=== PATIENT | female | born 1980 | race Caucasian/White ===

== ENCOUNTER 2020-08-17 12:40 | Emergency (ER) | payer SELFPAY ==
[2020-08-17 12:45] VITALS: BP 149/94; PULSE 90; RESP 16; TEMP 36.9; O2SAT 98; BMI 46.0
--- NOTE | 2020-08-17 12:57 | ED_ITS ---
HPI - Skin/Abscess/Foreign Bdy General: Chief complaint: Skin/Abscess/Foreign Body Stated complaint: TICK BITE Time Seen by Provider: 08/17/20 12:54 History of Present Illness: HPI narrative: Patient is a 40-year-old female comes to the ED with tick bite on right foot. Patient says that she noticed a tick on her right foot last Monday but august 12. She removed it with some tweezers on Monday as well. Over the last 24 hours patient developed a red r lexis around tick bite. She denies any fever, neurological symptoms, nausea/vomiting. Patient says she is asymptomatic. Associated symptoms: Deny chills, fever(s), nausea or vomiting Review of Systems Const: Denies: fever(s), chills or fatigue Eyes: Denies: change in vision or eye discomfort ENMT: Denies: throat pain, odynophagia, nasal discharge or nasal congestion Card: Denies: chest pain, palpitations, edema, swelling of feet/ankles, dyspnea on exertion or orthopnea Resp: Denies: dyspnea, productive cough or non-productive cough GI: Denies: abdominal pain, nausea, vomiting, diarrhea, constipation or hematochezia : Denies: flank pain, dysuria or hematuria Musc: Denies: neck pain, back pain or extremity swelling Skin/Breast: Reports: rash (Erythemic rash around tick bite); Denies: new lesions Neuro: Denies: headache(s), numbness in extremities or weakness in extremities PFS ED PFSH: Medical History Bipolar II disorder Mixed episodes Generalized anxiety disorder Nicotine dependence, cigarettes, uncomplicated Social History Smoking and tobacco status: current every day smoker cigarettes Packs smoked per day: 1 Physical Exam Const: COMMON NORMALS: no acute distress, patient oriented x3 and alert GENERAL APPEARANCE: cooperative and comfortable NUTRITIONAL APPEARANCE: obese HENMT: COMMON NORMALS: normocephalic HEAD & SCALP: normocephalic MOUTH: Normal oral and palatal mucosa present THROAT: posterior oropharynx normal and uvula midline Neck/C-Spine: COMMON NORMALS: supple GENERAL: Yes normal visual inspection Resp: COMMON NORMALS: normal respiratory effort, No retractions, No use of accessory muscles and clear to auscultation bilaterally AUSCULTATION: clear to auscultation bilaterally Cardio: COMMON NORMALS: regular rate, regular rhythm, S1 normal heart sound present, S2 normal heart sound present, No gallops present (Cardio), No clicks present (Cardio), No murmurs present (Cardio) and Peripheral pulses 2+ throughout RATE: regular rate RHYTHM: regular rhythm HEART SOUNDS: S1 normal heart sound present and S2 normal heart sound present PERIPHERAL PULSES: Peripheral pulses 2+ throughout GI: COMMON NORMALS: Normal to inspection, nondistended, normoactive bowel sounds present, Soft to palpation, non-tender and no masses PALPATION: Yes Soft to palpation : COMMON NORMALS: Yes no CVA tenderness BLADDER/KIDNEY EXAM: Yes no CVA tenderness Back/Pelvis: COMMON NORMALS: no CVA tenderness Extremity: NARRATIVE EXTREMITY EXAM: Patient has erythemic, warm and tender rash encircling the tick bite. Rash does not resemble erythema migrans. Exam findings suggestive of mild cellulitis developing. GENERAL: Yes normal exam except as noted Neuro: COMMON NORMALS: patient oriented x3 and moves all extremities SENSORIUM/ORIENTATION: Yes alert Skin: NARRATIVE SKIN EXAM: Patient has erythemic, warm and tender rash encircling the tick bite. Rash does not resemble erythema migrans. Exam findings suggestive of mild cellulitis developing. GENERAL SKIN EXAM: dry skin Course Vital Signs: Vital signs: Vital Signs Temperature 98.4 F 08/17/20 12:45 Pulse Rate 90 08/17/20 12:45 Respiratory Rate 16 08/17/20 12:45 Blood Pressure 149/94 08/17/20 12:45 Pulse Oximetry 98 08/17/20 12:45 MDM - Skin/Abscess/Foreign Bdy MDM Narrative: Medical decision making narrative: Patient is a 40-year-old female comes to the ED with tick bite on right foot. She removed the tick on Monday and she started developing an red rash around tick bite couple days ago. She denies any symptoms and patient appears nontoxic and is in no acute distress or pain. Patient has erythemic rash around tick bite area. Rash does not resemble the erythema migrans. CBC and CMP were unremarkable. Tick panel lab pending. Patient diagnosed with tick bite of foot. Patient was given a dose of doxycycline and sent home with a prescription for doxycycline. She was told to follow-up with her PCP in 7 to 10 days for reevaluation. Return to ED precautions given. Patient understood and agreed with plan. Lab Data: Attestation: I reviewed the patient's lab results. Labs: Lab Results 08/17/20 08/17/20 Range/Units 13:07 13:07 WBC 5.9 (4.0-10.0) 10^3/ uL RBC 4.97 (4.1-5.3) 10^6/u L Hgb 14.3 (11.5-15.3) g/dL Hct 43.2 (37.0-47.0) % MCV 86.9 (81-99) fL MCH 28.8 (28.0-34.0) pg MCHC 33.1 (30.0-36.0) g/dL RDW 14.3 (12.1-15.1) % Plt Count 223 (130-400) 10^3/c mm MPV 11.1 H (7.4-10.4) fL Neut % (Auto) 37.7 % Lymph % (Auto) 52.1 % [place] % (Auto) 7.3 % Eos % (Auto) 2.0 % Baso % (Auto) 0.7 % Neut # (Auto) 2.23 (1.8-7.7) 10^3/u L Lymph # (Auto) 3.1 (0.8-4.8) 10^3/u L [place] # (Auto) 0.4 (0.2-0.9) 10^3/u L Eos # (Auto) 0.1 (0.0-0.8) 10^3/u L Baso # (Auto) 0.0 (0.0-0.1) 10^3/u L Nucleated RBC % (a uto) 0 % Nucleated RBCs # 0.0 /100WBC Sodium 141 (136-145) mmol/L Potassium 4.3 (3.5-5.1) mmol/L Chloride 107 (98-107) mmol/L Carbon Dioxide 27 (22-29) mmol/L Anion Gap 11.3 (5-19) BUN 9 (6-20) mg/dL Creatinine 0.5 (0.5-0.9) mg/dL GFR Calculation 138.1 H (90-130) mL/min Glucose 86 (65-115) mg/dL Calculated Osmolal ity 290 (285-295) mOsm/k g Calcium 8.8 (8.5-10.5) mg/dL Total Bilirubin 0.5 (0.15-1.2) mg/dL AST 23 (0-32) U/L ALT 22 (0-33) U/L Alkaline Phosphata se 70 (35-105) IU/L Total Protein 7.2 (6.6-8.7) g/dL Albumin 4.2 (3.5-5.2) g/dL Globulin 3.0 (1.3-4.6) g/dL Discharge Plan Discharge Patient Disposition: Home Clinical Impression: Tick bite of foot Qualifiers: Encounter type: initial encounter Laterality: right Qualified Code(s): S90.861A - Insect bite (nonvenomous), right foot, initial encounter Condition: Stable Prescriptions: New doxycycline hyclate 100 mg capsule 100 mg PO BID 14 Days Qty: 28 RF: 0 No Action hydrocodone-acetaminophen 7.5-325 mg tablet 1 tab PO TID PRN (Reason: Pain) RF: 0 Prilosec OTC 20 mg tablet,delayed release (DR/EC) 20 mg PO DAILY@2100 RF: 0 cetirizine [Zyrtec] 10 mg tablet 10 mg PO DAILY RF: 0 alprazolam 0.5 mg tablet 0.5 mg PO BID PRN (Reason: anxiety) Qty: 60 RF: 3 Advil 200 mg Tablet 200 mg PO Q6H PRN (Reason: pain/fever) RF: 0 Celexa 40 mg tablet 40 mg PO DAILY@0900 RF: 0 Abilify 10 mg tablet 10 mg PO BEDTIME@2100 RF: 0 Discharge Orders: Discharge ED (Routine); Ordered 08/17/20 Ordered By: Naldo Holly Referrals: Armani Aguila MD [Primary Care Provider] - Discharge Diet: Regular Discharge Activity: Resume usual activity Patient Instructions: Lyme Disease (ED), Tick Bite (ED), [place] Spotted Fever (ED) Activity Restrictions/Additional Instructions: Follow-up with medical provider as directed in 7 to 10 days for reevaluation. Take medications as prescribed. Take [id number] Tylenol or ibuprofen for fevers or pain. Return to the ER or your medical provider if condition worsens. Please read and understand discharge instructions. Thank you for choosing [facility] for your healthcare needs today. Please realize this is an emergency room and that we are providing you with a medical screening exam and this may not be complete and all inclusive of all the testing and or work up that you may need to determine your ailment or severity of your illness. It is very important that you follow up as instructed or that you return to the Emergency Department should you have concerns or if your condition changes or worsens in any way. 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
[2020-08-17 13:18] LABS: Basophils % 0.7 %; Eosinophils # 0.1 10^3/uL (0.0-0.8); Hematocrit 43.2 % (37.0-47.0); Hemoglobin 14.3 g/dL (11.5-15.3); Lymphocytes # 3.1 10^3/uL (0.8-4.8); Lymphocytes % 52.1 %; Mean Corpuscular HGB Conc 33.1 g/dL (30.0-36.0); Mean Corpuscular Hemoglobin 28.8 pg (28.0-34.0); Mean Corpuscular Volume 86.9 fL (81-99); Mean Platelet Volume 11.1 fL (7.4-10.4); Monocytes # 0.4 10^3/uL (0.2-0.9); Monocytes % 7.3 %; Neutrophils # 2.23 10^3/uL (1.8-7.7); Neutrophils % 37.7 %; Nucleated Red Blood Cells % 0 %; Platelet Count 223 10^3/cmm (130-400); Red Blood Count 4.97 10^6/uL (4.1-5.3); Red Cell Distribution Width 14.3 % (12.1-15.1); White Blood Count 5.9 10^3/uL (4.0-10.0)
[2020-08-17] MEDS: doxycycline 100 mg Tablet PO (13:26)
[2020-08-17 13:39] LABS: Alanine Aminotransferase 22 U/L (0-33); Albumin Level 4.2 g/dL (3.5-5.2); Alkaline Phosphatase 70 IU/L (35-105); Anion Gap 11.3 (5-19); Aspartate Amino Transferase 23 U/L (0-32); Blood Urea Nitrogen 9 mg/dL (6-20); Calcium 8.8 mg/dL (8.5-10.5); Carbon Dioxide 27 mmol/L (22-29); Chloride 107 mmol/L (98-107); Glomerular Filtration Rate 138.1 mL/min (90-130); Glucose 86 mg/dL (65-115); Osmolality Calculated 290 mOsm/kg (285-295); Potassium 4.3 mmol/L (3.5-5.1); Sodium 141 mmol/L (136-145); Total Bilirubin 0.5 mg/dL (0.15-1.2); Total Protein 7.2 g/dL (6.6-8.7)
[2020-08-19 12:12] LABS: Lyme AB Screen <0.90 index
[2020-08-21 17:32] LABS: E. Chaffeensis AB IGG <1:64; E. Chaffeensis AB IGM <1:20; RMSF IGG NOT DETECTED; RMSF IGM NOT DETECTED
== END 2020-08-17 13:49 | disposition home or self-care (01) ==
PROVIDERS: Emergency Provider Physician Assistant; PCP Family Medicine
DX: S90.861A Insect bite (nonvenomous), right foot, initial encounter (principal); W57.XXXA Bitten or stung by nonvenomous insect and other nonvenomous arthropods, initial encounter; F17.210 Nicotine dependence, cigarettes, uncomplicated
CPT/HCPCS: 80053; 85025; 86618; 86666; 86757; 99282

== ENCOUNTER 2020-09-25 14:25 | Emergency (ER) | payer SELFPAY ==
[2020-09-25 14:49] VITALS: BP 166/121; PULSE 74; RESP 16; TEMP 36.6; O2SAT 97; BMI 45.1
[2020-09-25 15:59] LABS: Add Urine Microscopic? NO; Charge for UA Resulting for Rev
[2020-09-25 16:20] LABS: Basophils % 0.6 %; Eosinophils # 0.2 10^3/uL (0.0-0.8); Eosinophils % 2.4 %; Hematocrit 38.9 % (37.0-47.0); Hemoglobin 12.8 g/dL (11.5-15.3); Lymphocytes # 3.3 10^3/uL (0.8-4.8); Lymphocytes % 48.6 %; Mean Corpuscular HGB Conc 32.9 g/dL (30.0-36.0); Mean Corpuscular Hemoglobin 28.8 pg (28.0-34.0); Mean Corpuscular Volume 87.6 fL (81-99); Mean Platelet Volume 10.9 fL (7.4-10.4); Monocytes # 0.5 10^3/uL (0.2-0.9); Monocytes % 7.8 %; Neutrophils # 2.74 10^3/uL (1.8-7.7); Neutrophils % 40.5 %; Nucleated Red Blood Cells % 0 %; Platelet Count 230 10^3/cmm (130-400); Red Blood Count 4.44 10^6/uL (4.1-5.3); Red Cell Distribution Width 14.1 % (12.1-15.1); White Blood Count 6.8 10^3/uL (4.0-10.0)
[2020-09-25 16:42] LABS: HCG, Serum Qual Negative (Negative)
[2020-09-25 16:43] LABS: Bilirubin Urine Neg (Negative); Blood Urine Neg (Negative); Glucose Urine UA Norm (Normal); Ketones Urine Negative (Negative); Leukocyte Esterase Urine Negative (Negative); Nitrate Urine Negative (Negative); Protein Urine Neg (Negative); Urine Appearance Clear (CLEAR); Urine Color Yellow (Yellow); Urobilinogen Urine Norm (Negative); pH Urine 7 (5-7)
[2020-09-25 16:55] LABS: Alanine Aminotransferase 20 U/L (0-33); Albumin Level 3.9 g/dL (3.5-5.2); Alkaline Phosphatase 72 IU/L (35-105); Anion Gap 10.6 (5-19); Aspartate Amino Transferase 17 U/L (0-32); Blood Urea Nitrogen 8 mg/dL (6-20); Calcium 9.4 mg/dL (8.5-10.5); Carbon Dioxide 28 mmol/L (22-29); Chloride 103 mmol/L (98-107); Globulin 2.9 g/dL (1.3-4.6); Glomerular Filtration Rate 138.1 mL/min (90-130); Glucose 94 mg/dL (65-115); Lipase 40 U/L (13-60); Osmolality Calculated 284 mOsm/kg (285-295); Potassium 3.6 mmol/L (3.5-5.1); Sodium 138 mmol/L (136-145); Total Bilirubin 0.4 mg/dL (0.15-1.2); Total Protein 6.8 g/dL (6.6-8.7)
== END 2020-09-25 18:09 | disposition home or self-care (01) ==
LOC: ER 14:35
PROVIDERS: Physician Assistant; PCP Family Medicine
DX: Z53.21 Procedure and treatment not carried out due to patient leaving prior to being seen by health care provider (principal)
CPT/HCPCS: 36415; 80053; 81003; 83690; 84703; 85025

== ENCOUNTER → 2020-11-26 12:47 | Outpatient (BNVA) | payer OTHER, SELFPAY | PROVIDERS: PCP Family Medicine; Visit Provider Nurse Practitioner Family | DX: Z20.822 Contact with and (suspected) exposure to COVID-19 (principal) | CPT/HCPCS: 87635 ==

== ENCOUNTER 2021-09-10 00:37 | Emergency (ER) | payer SELFPAY ==
[2021-09-10 00:57] VITALS: BP 135/84; PULSE 60; RESP 18; TEMP 36.6; O2SAT 98; BMI 41.1
[2021-09-10 02:31] VITALS: BP 143/88; RESP 16
--- NOTE | 2021-09-10 02:41 | W.ED.ABDPA2 ---
HPI - Abdominal Pain General: Chief Complaint: Abdominal Pain Stated Complaint: abd pain Time Seen by Provider: 09/10/21 01:29 Source: patient Mode of arrival: ambulatory Limitations: no limitations History of Present Illness: 41-year-old female states that she has had an abscess to her right lower abdomen over the last few days. States its been causing her pain at the site that is sharp in nature it is worse with touch. States her pain is a 4 out of 10 she denies any radiation of her pain denies any nausea or vomiting. She had some slight drainage from the abscess. Associated Symptoms: Denies chills, diarrhea, dysuria, fever(s), nausea and vomiting Review of Systems Const: Denies: fever(s), chills, body aches or change in appetite Eyes: Denies: blurry vision or eye discomfort ENMT: Denies: throat pain or dental pain Card: Denies: chest pain Resp: Denies: dyspnea GI: Denies: abdominal pain, nausea, vomiting or diarrhea : Denies: dysuria Musc: Denies: neck pain or back pain Skin/Breast: Denies: rash Neuro: Denies: headache(s) Psych: Denies: depression Quinn/Lymph: Denies: easy bruising All/Imm: Denies: urticaria PFSH ED PFSH: Medical History Bipolar II disorder Mixed episodes Generalized anxiety disorder Nicotine dependence, cigarettes, uncomplicated Social History Smoking and tobacco status: current every day smoker cigarettes Packs smoked per day: 1 Physical Exam Const: COMMON NORMALS: no acute distress, patient oriented x3 and healthy appearing HENMT: COMMON NORMALS: normocephalic and atraumatic HEAD & SCALP: normocephalic and atraumatic Eye: COMMON NORMALS: Equal, round and reactive pupils present and EOMs intact bilaterally PUPIL: Yes Equal, round and reactive pupils present Neck/C-Spine: COMMON NORMALS: full ROM and supple Chest: COMMONS NORMALS: normal inspection of the chest and normal palpation of entire chest wall Resp: COMMON NORMALS: normal respiratory effort, No retractions, No use of accessory muscles and clear to auscultation bilaterally AUSCULTATION: clear to auscultation bilaterally Cardio: COMMON NORMALS: regular rate, regular rhythm and No murmurs present (Cardio) RATE: regular rate RHYTHM: regular rhythm GI: COMMON NORMALS: Normal to inspection, nondistended, normoactive bowel sounds present, Soft to palpation, non-tender and no masses PALPATION: Yes Soft to palpation Extremity: COMMON NORMALS: normal to inspection and full ROM Neuro: COMMON NORMALS: patient oriented x3, moves all extremities and no focal motor deficits Psych: COMMON NORMALS: mental status grossly normal, Normal thought process present and cooperative THOUGHT PROCESS: Normal thought process present Skin: NARRATIVE SKIN EXAM: 2 cm abscess to right lower abdomen that is tender to touch Procedures Abscess I/D Site: abdomen Side (if applicable): right Local Anesthetic: lidocaine 1% Amount of anesthesia used (mL): 8 Technique: incised with #11 blade Packing used?: none Course Vital Signs: Vital signs: Vital Signs Temperature 97.9 F 09/10/21 00:57 Pulse Rate 60 09/10/21 00:57 Respiratory Rate 18 09/10/21 00:57 Blood Pressure 135/84 09/10/21 00:57 Pulse Oximetry 98 09/10/21 00:57 MDM - Abdominal Pain Medical Decision Making Patient presents with abscess to right lower abdomen a believe that likely causing her abdominal pain she has no tenderness elsewhere besides the abscess did incise and drain the abscess we will start her on Bactrim. Discharge Plan Discharge Patient Disposition: Home Clinical Impression: Abscess Condition: Stable Prescriptions: New Bactrim DS 800-160 mg tablet 1 tab PO BID 10 Days Qty: 20 0RF naproxen [Naprosyn] 500 mg tablet 500 mg PO BID PRN (Reason: pain) Qty: 20 0RF No Action hydrocodone-acetaminophen 7.5-325 mg tablet 1 tab PO TID PRN (Reason: Pain) 0RF Prilosec OTC 20 mg tablet,delayed release (DR/EC) 20 mg PO DAILY@2100 0RF cetirizine [Zyrtec] 10 mg tablet 10 mg PO DAILY 0RF alprazolam 0.5 mg tablet 0.5 mg PO BID PRN (Reason: anxiety) Qty: 30 3RF Rx Instructions: May take one tablet twice per day as needed for anxiety aripiprazole [Abilify] 10 mg tablet 10 mg PO .QHS Qty: 30 6RF Rx Instructions: Take one tablet at bedtime citalopram [Celexa] 40 mg tablet 40 mg PO QAM Qty: 30 6RF Rx Instructions: Take one tablet every morning Advil 200 mg Tablet 200 mg PO Q6H PRN (Reason: pain/fever) 0RF Discharge Orders: Discharge ED (Routine); Ordered 09/10/21 Ordered By: Jennifer Mann Referrals: Armani Aguila MD [Primary Care Provider] - Discharge Diet: Advance as tolerated Discharge Activity: Resume usual activity Patient Instructions: Abscess (ED), Opioid Safety Coding Level of Care Code ED 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
[2021-09-10] MEDS: HYDROcodone-acetaminophen 5-325 mg Tablet 1 TAB PO (02:44)
[2021-09-10 03:00] VITALS: BP 136/88; PULSE 88; RESP 16; O2SAT 98
[2021-09-10 03:01] VITALS: BP 136/88; PULSE 88; RESP 16; O2SAT 98
== END 2021-09-10 03:02 | disposition home or self-care (01) ==
PROVIDERS: Emergency Provider Emergency Medicine; PCP Family Medicine
DX: L02.211 Cutaneous abscess of abdominal wall (principal); F17.210 Nicotine dependence, cigarettes, uncomplicated
CPT/HCPCS: 10060; 99283

== ENCOUNTER 2021-10-08 23:42 | Emergency (ER) | payer SELFPAY ==
[2021-10-09 00:17] VITALS: BP 153/98; PULSE 80; RESP 18; TEMP 36.4; O2SAT 97; BMI 41.5
[2021-10-09] MEDS: ketorolac 30 mg/mL INJ 15 MG IVP (00:33)
[2021-10-09] MEDS: diphenhydrAMINE 50 mg/mL SDV 1mL IVP (00:33)
[2021-10-09] MEDS: metoclopramide 5 mg/mL SDV 2 mL 10 MG IVP (00:33)
--- NOTE | 2021-10-09 00:37 | ED_ITS ---
HPI - Headache General: Chief Complaint: Headache Stated Complaint: Headach\N\V Time Seen by Provider: 10/09/21 00:02 Source: patient Mode of arrival: ambulatory Limitations: no limitations History of Present Illness: 41-year-old female who states that she has had a headache since last night. She states she has a history of migraines and this is the same as her previous migraines. States her headaches currently 8 out of 10 is worsening gradually is worse with bright lights and loud sounds. She denies any fever denies any neck pain denies any vomiting or diarrhea. Associated symptoms: Deny chest pain, fever(s), nausea, rash or vomiting Review of Systems Const: Denies: fever(s), chills, body aches or change in appetite Eyes: Denies: blurry vision or eye discomfort ENMT: Denies: throat pain or dental pain Card: Denies: chest pain Resp: Denies: dyspnea GI: Denies: abdominal pain, nausea, vomiting or diarrhea : Denies: dysuria Musc: Denies: neck pain or back pain Skin/Breast: Denies: rash Neuro: Reports: headache(s) Psych: Denies: depression Quinn/Lymph: Denies: easy bruising All/Imm: Denies: urticaria PFSH ED PFSH: Medical History Bipolar II disorder Mixed episodes Generalized anxiety disorder Nicotine dependence, cigarettes, uncomplicated Social History Smoking and tobacco status: current every day smoker cigarettes Packs smoked per day: 1 Physical Exam Const: COMMON NORMALS: no acute distress, patient oriented x3 and healthy appearing HENMT: COMMON NORMALS: normocephalic and atraumatic HEAD & SCALP: normocephalic and atraumatic Eye: COMMON NORMALS: Equal, round and reactive pupils present and EOMs intact bilaterally PUPIL: Yes Equal, round and reactive pupils present Neck/C-Spine: COMMON NORMALS: full ROM and supple Chest: COMMONS NORMALS: normal inspection of the chest and normal palpation of entire chest wall Resp: COMMON NORMALS: normal respiratory effort, No retractions, No use of accessory muscles and clear to auscultation bilaterally AUSCULTATION: clear to auscultation bilaterally Cardio: COMMON NORMALS: regular rate, regular rhythm and No murmurs present (Cardio) RATE: regular rate RHYTHM: regular rhythm GI: COMMON NORMALS: Normal to inspection, nondistended, normoactive bowel sounds present, Soft to palpation, non-tender and no masses PALPATION: Yes Soft to palpation Extremity: COMMON NORMALS: normal to inspection and full ROM Neuro: COMMON NORMALS: patient oriented x3, moves all extremities and no focal motor deficits Psych: COMMON NORMALS: mental status grossly normal, Normal thought process present and cooperative THOUGHT PROCESS: Normal thought process present Skin: COMMON NORMALS: no rashes or lesions noted and no wounds GENERAL SKIN EXAM: no rashes or lesions noted Course Vital Signs: Vital signs: Vital Signs Temperature 97.5 F L 10/09/21 00:17 Pulse Rate 80 10/09/21 00:17 Respiratory Rate 18 10/09/21 00:17 Blood Pressure 153/98 10/09/21 00:17 Pulse Oximetry 97 10/09/21 00:17 MDM - Headache Medical Decision Making Patient presents here with a migraine headache like her previous migraine she has no signs of subarachnoid hemorrhage or meningitis she feels much improved here she is stable for discharge is to follow-up PCP and return if worsening. Discharge Plan Discharge Patient Disposition: Home Clinical Impression: Migraine Qualifiers: Migraine type: unspecified Status migrainosus presence: without status migrainosus Intractability: not intractable Qualified Code(s): G43.909 - Migraine, unspecified, not intractable, without status migrainosus Condition: Stable Prescriptions: No Action hydrocodone-acetaminophen 7.5-325 mg tablet 1 tab PO TID PRN (Reason: Pain) 0RF Prilosec OTC 20 mg tablet,delayed release (DR/EC) 20 mg PO DAILY@2100 0RF cetirizine [Zyrtec] 10 mg tablet 10 mg PO DAILY 0RF alprazolam 0.5 mg tablet 0.5 mg PO BID PRN (Reason: anxiety) Qty: 30 3RF Rx Instructions: May take one tablet twice per day as needed for anxiety aripiprazole [Abilify] 10 mg tablet 10 mg PO .QHS Qty: 30 6RF Rx Instructions: Take one tablet at bedtime citalopram [Celexa] 40 mg tablet 40 mg PO QAM Qty: 30 6RF Rx Instructions: Take one tablet every morning Advil 200 mg Tablet 200 mg PO Q6H PRN (Reason: pain/fever) 0RF Naprosyn 500 mg tablet 500 mg PO BID PRN (Reason: pain) Qty: 20 0RF Discharge Orders: Discharge ED (Routine); Ordered 10/09/21 Ordered By: Jennifer Mann Referrals: Armani Aguila MD [Primary Care Provider] - Discharge Diet: Advance as tolerated Discharge Activity: Resume usual activity Patient Instructions: Migraine Headache (ED) Stand Alone Forms: Work/School Release Coding Level of Care 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
== END 2021-10-09 01:17 | disposition home or self-care (01) ==
PROVIDERS: Emergency Provider Emergency Medicine; PCP Family Medicine
DX: G43.909 Migraine, unspecified, not intractable, without status migrainosus (principal); F17.210 Nicotine dependence, cigarettes, uncomplicated
CPT/HCPCS: 96374; 96375; 99284; J1200; J1885; J2765

== ENCOUNTER 2021-11-17 14:13 | Emergency (ER) | payer SELFPAY ==
[2021-11-17 14:17] VITALS: BP 153/97; PULSE 88; RESP 14; TEMP 36.9; O2SAT 99; BMI 40.6
--- NOTE | 2021-11-17 14:35 | ED_ITS ---
HPI - Headache General: Chief Complaint: Headache Stated Complaint: N/V head pain Time Seen by Provider: 11/17/21 14:14 Source: patient Mode of arrival: ambulatory Limitations: no limitations History of Present Illness: Patient is a 41-year-old female presents to ED today with complaint of a migraine headache. Patient states she has a longstanding history of migraine headaches and states her headache today feels identical to previous migraines. She states currently headache is located to her left temporal region although she has had pain to the right temporal region as well. Pain started yesterday. She states at its worst she will rate at a 10/10 but currently is rating it at a 7.5/10. Headache is accompanied with nausea and vomiting which is common for her migraines. She states headache seems to be worse with light and sound. Patient does not take any prophylactic or abortive migraine medications at home. MD elicited complaint: headache and migraine Pertinent past history: migraines Onset (ago): day(s) (yesterday) Onset description: gradually Location: right, left and temporal Severity: moderate Exacerbating factors: light and noise Associated symptoms: Reports nausea and vomiting; Deny chest pain, confusion, fever(s), malaise or rash Review of Systems Const: Denies: fever(s), chills, body aches, fatigue or malaise Eyes: Denies: change in vision, blurry vision, photophobia, floaters or seeing flashes Card: Denies: chest pain Resp: Denies: dyspnea GI: Reports: nausea and vomiting; Denies: abdominal pain or change in bowel habits Musc: Denies: neck pain, back pain, extremity pain or joint pain Skin/Breast: Denies: rash Neuro: Reports: headache(s); Denies: numbness in extremities, weakness in extremities, sensory changes, lack of coordination, difficulty walking, dizziness, confusion, behavioral changes, Slurred speech present, difficulty communicating thoughts or seizure-like activity PFS ED PFSH: Medical History Bipolar II disorder Mixed episodes Generalized anxiety disorder Nicotine dependence, cigarettes, uncomplicated Social History Smoking and tobacco status: current every day smoker cigarettes Packs smoked per day: 1 Physical Exam Const: COMMON NORMALS: no acute distress, patient oriented x3, no limitations and alert GENERAL APPEARANCE: cooperative NUTRITIONAL APPEARANCE: obese ORIENTATION/CONSCIOUSNESS: Yes awake, Yes oriented to person, Yes oriented to place and Yes oriented to time HENMT: COMMON NORMALS: normocephalic and atraumatic HEAD & SCALP: normal to inspection, normocephalic and atraumatic FACE & SINUS: normal facial exam GI: COMMON NORMALS: Normal to inspection, nondistended, normoactive bowel sounds present, Soft to palpation and non-tender PALPATION: Yes Soft to palpation Neuro: BRITNEY COMA SCALE: document GCS findings Britney coma scale eye opening: Spontaneous [place] coma scale verbal response: Orientated Britney coma scale motor response: Obey commands Britney coma scale total score: 15 COMMON NORMALS: patient oriented x3, CN's II-XII intact bilaterally, moves all extremities, no focal motor deficits, no sensory deficits noted and gait normal SENSORIUM/ORIENTATION: Yes alert, Yes oriented to person, Yes oriented to place and Yes oriented to time Course Vital Signs: Vital signs: Vital Signs Temperature 98.5 F 11/17/21 14:17 Pulse Rate 88 11/17/21 14:17 Respiratory Rate 14 11/17/21 14:17 Blood Pressure 137/94 11/17/21 15:30 Pulse Oximetry 99 11/17/21 14:17 Oxygen Delivery Me thod 11/17/21 14:17 MDM - Headache Medical Decision Making [place] improving with medications here. She states she feels comfortable going home at this time. Discharge Plan Discharge Patient Disposition: Home Clinical Impression: Migraine Qualifiers: Migraine type: without aura Status migrainosus presence: without status migrainosus Intractability: not intractable Qualified Code(s): G43.009 - Migraine without aura, not intractable, without status migrainosus Condition: Stable Prescriptions: No Action hydrocodone-acetaminophen 7.5-325 mg tablet 1 tab PO TID PRN (Reason: Pain) Prilosec OTC 20 mg tablet,delayed release (DR/EC) 20 mg PO DAILY@2100 cetirizine [Zyrtec] 10 mg tablet 10 mg PO DAILY alprazolam 0.5 mg tablet 0.5 mg PO BID PRN (Reason: anxiety) Qty: 30 3RF Rx Instructions: May take one tablet twice per day as needed for anxiety aripiprazole [Abilify] 10 mg tablet 10 mg PO .QHS Qty: 30 6RF Rx Instructions: Take one tablet at bedtime citalopram [Celexa] 40 mg tablet 40 mg PO QAM Qty: 30 6RF Rx Instructions: Take one tablet every morning Advil 200 mg Tablet 200 mg PO Q6H PRN (Reason: pain/fever) Naprosyn 500 mg tablet 500 mg PO BID PRN (Reason: pain) Qty: 20 0RF Discharge Orders: Discharge ED (Routine); Ordered 11/17/21 Ordered By: Marium Solitario Referrals: Armani Aguila MD [Primary Care Provider] - Patient Instructions: Headache - Migraine (Adult), Migraine Headache (ED) Coding Level of Care Code 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
[2021-11-17 15:30] VITALS: BP 137/94
[2021-11-17] MEDS: sodium chloride 0.9% 1,000 ML 999 ML IV (15:33)
[2021-11-17] MEDS: ondansetron 2 mg/ML SDV 2 mL 4 MG IVP (15:35)
[2021-11-17] MEDS: diphenhydrAMINE 50 mg/mL SDV 1mL IVP (15:38)
[2021-11-17] MEDS: ketorolac 60 mg/2 mL INJ 30 MG IVP (15:42)
[2021-11-17] MEDS: dexamethasone 10 mg/mL INJ 8 MG IV (15:46)
[2021-11-17 16:55] VITALS: BP 137/68; PULSE 67; RESP 16; O2SAT 98
== END 2021-11-17 16:57 | disposition home or self-care (01) ==
PROVIDERS: Emergency Provider Physician Assistant; PCP Family Medicine
DX: G43.009 Migraine without aura, not intractable, without status migrainosus (principal); F17.210 Nicotine dependence, cigarettes, uncomplicated
CPT/HCPCS: 96374; 96375; 99284; J1100; J1200; J1885; J2405; J7030

== ENCOUNTER 2022-11-06 11:13 | Emergency (ER) | payer SELFPAY ==
[2022-11-06 11:28] VITALS: BP 159/93; PULSE 74; RESP 15; TEMP 36.7; O2SAT 98
--- NOTE | 2022-11-06 12:25 | W.ED.HA ---
HPI - Headache General: Chief Complaint: Headache Stated Complaint: N/headache Time Seen by Provider: 11/06/22 12:08 Source: patient Mode of arrival: ambulatory Limitations: no limitations History of Present Illness: This patient comes to the emergency department by private vehicle. She is here because of a headache. She states its been present since early this morning. She states she is woken with a headache and it is similar and unchanged from previous headaches she has had in the past. She states she suffered from similar headaches over 30 years. She states both her mother and father had migraine headaches. She has had repetitive vomiting this morning and has not been able to eat or drink or keep an Excedrin in her stomach. She denies any recent falls, fever congestion etc. She does consume caffeine daily but has not had any caffeine today because of her nausea and vomiting. She also smokes tobacco. She does not drink alcohol. She seems to think trigger sometimes or getting overheated and she did experience that yesterday. She denies any associated speech difficulty, focal numbness or weakness. She just describes the headache as global and pounding in nature. MD elicited complaint: headache Pertinent past history: migraines Exacerbating factors: exertion and light Context: occurred at rest Associated symptoms: Reports nausea and vomiting; Deny chest pain, confusion, fever(s) or rash Review of Systems Const: Denies: fever(s) or chills Eyes: Reports: photophobia; Denies: change in vision ENMT: Denies: throat pain, odynophagia or nasal congestion Card: Denies: chest pain, palpitations, irregular heart rhythm or edema Resp: Denies: dyspnea, productive cough or non-productive cough GI: Reports: nausea and vomiting; Denies: abdominal pain or diarrhea : Denies: flank pain, difficulty voiding or dysuria Musc: Denies: neck pain, back pain, extremity pain or extremity swelling Skin/Breast: Denies: rash Neuro: Reports: headache(s); Denies: numbness in extremities, weakness in extremities, dizziness or confusion Psych: Denies: anxiety or depression PFS ED PFSH: Medical History Bipolar II disorder Mixed episodes Generalized anxiety disorder Nicotine dependence, cigarettes, uncomplicated Social History Smoking and tobacco status: current every day smoker cigarettes Packs smoked per day: 1 Physical Exam Narrative: EXAM NARRATIVE: She is resting in the examination room in a darkened room with sunglasses. She answers questions appropriately in a goal-directed fashion. Const: COMMON NORMALS: patient oriented x3 GENERAL APPEARANCE: cooperative NUTRITIONAL APPEARANCE: overweight ORIENTATION/CONSCIOUSNESS: Yes awake and Yes oriented to person HENMT: COMMON NORMALS: normocephalic, atraumatic, Normal nasal mucous membranes and turbinates present and moist oral mucous membranes HEAD & SCALP: normal to inspection, normocephalic and atraumatic; no scalp tenderness NOSE: Normal nasal mucous membranes and turbinates present Eye: COMMON NORMALS: Equal, round and reactive pupils present, EOMs intact bilaterally and conjunctivae normal CONJUNCTIVA: Yes conjunctivae normal PUPIL: Yes Equal, round and reactive pupils present Neck/C-Spine: COMMON NORMALS: full ROM, supple, no meningeal signs, no JVD and Thyroid normal THYROID: Thyroid normal Chest: COMMONS NORMALS: normal inspection of the chest Resp: COMMON NORMALS: normal respiratory effort, No retractions, No use of accessory muscles and clear to auscultation bilaterally EFFORT & INSPECTION: Yes able to speak in complete sentences AUSCULTATION: clear to auscultation bilaterally Cardio: COMMON NORMALS: no JVD, regular rate, regular rhythm, No murmurs present (Cardio) and Peripheral pulses 2+ throughout RATE: regular rate RHYTHM: regular rhythm PERIPHERAL PULSES: Peripheral pulses 2+ throughout GI: COMMON NORMALS: Normal to inspection, nondistended, normoactive bowel sounds present : COMMON NORMALS: Yes no CVA tenderness BLADDER/KIDNEY EXAM: Yes no CVA tenderness Back/Pelvis: COMMON NORMALS: no CVA tenderness, thoracic and lumbar spine normal to inspection, no thoracic nor lumbar tenderness and thoraco-lumbar ROM normal Extremity: COMMON NORMALS: normal to inspection, full ROM, capillary refill normal, no joint enlargement, no clubbing, cyanosis or edema, no calf tenderness and no pedal edema Neuro: COMMON NORMALS: patient oriented x3, moves all extremities and no focal motor deficits SENSORIUM/ORIENTATION: Yes oriented to person MENINGEAL SIGNS: Yes no meningeal signs CRANIAL NERVES: Yes CN normal except as noted SPEECH: speech normal Psych: COMMON NORMALS: mental status grossly normal Skin: COMMON NORMALS: no rashes or lesions noted, no wounds and turgor normal GENERAL SKIN EXAM: no rashes or lesions noted and turgor normal Course Reevaluation(s): Reevaluation #1: After second dose of Reglan as well as Toradol patient's is clinically much improved and feels at baseline and desires to be discharged home. Time: 15:03 Vital Signs: Vital signs: Vital Signs Temperature 98.1 F 11/06/22 11:28 Pulse Rate 74 11/06/22 11:28 Respiratory Rate 15 11/06/22 11:28 Blood Pressure 159/91 11/06/22 14:03 Pulse Oximetry 98 11/06/22 11:28 Oxygen Delivery Me thod Room Air 11/06/22 14:03 MDM - Headache Medical Decision Making This patient made her way to the emergency department because of a headache. Headache onset and character is exactly like prior headaches. She has a 30+ year history of recurrent headaches with a strong family history of similar vascular and mixed headaches. Nothing different or unusual about the onset of this headache. She had associated vomiting and nausea. No focal findings on clinical examination to suggest a worrisome secondary headache. She received treatment with usual vascular mixed headache medications to include IV fluids, Reglan, diphenhydramine, ketorolac. She had a very positive response to medications and treatment and was stable improved without any headache at the time of discharge. Discharge Plan Discharge Patient Disposition: Home Clinical Impression: Headache Condition: Stable Prescriptions: No Action hydrocodone-acetaminophen 7.5-325 mg tablet 1 tab PO Q8H PRN (Reason: Pain) Prilosec OTC 20 mg tablet,delayed release (DR/EC) 20 mg PO DAILY cetirizine [Zyrtec] 10 mg tablet 10 mg PO DAILY PRN (Reason: Allergy Symptoms) ibuprofen [Advil] 200 mg Tablet 800 mg PO Q6H PRN (Reason: pain/fever) albuterol sulfate 90 mcg/actuation Hfa Aerosol Inhaler 2 puff INHALATION QID PRN (Reason: Shortness Of Breath) Discharge Orders: Discharge ED (Routine); Ordered 11/06/22 Ordered By: George oLpez Referrals: Armani Aguila MD [Primary Care Provider] - Discharge Diet: Usual diet Discharge Activity: Increase activity as tolerated Patient Instructions: Opioid Safety, Pain Management Activity Restrictions/Additional Instructions: We recommend continue usual activity, medications etc. We also recommend getting with your primary personal care aid to discuss any need for rescue or prophylactic treatment for your recurrent headaches. If you develop any new or worsening symptoms you are welcome to return to the emergency department for reevaluation. 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
[2022-11-06] MEDS: diphenhydrAMINE 50 mg/mL SDV 1mL 25 MG IVP (12:48)
[2022-11-06] MEDS: metoclopramide 5 mg/mL SDV 2 mL 10 MG IVP ×2 (12:48→14:15)
[2022-11-06] MEDS: sodium chloride 0.9% 1,000 ML 999 ML IV (12:48)
[2022-11-06 14:03] VITALS: BP 159/91
[2022-11-06] MEDS: ketorolac 30 mg/mL INJ 15 MG IVP (14:16)
== END 2022-11-06 15:11 | disposition home or self-care (01) ==
PROVIDERS: Emergency Provider Emergency Medicine; PCP Family Medicine
DX: R51.9 Headache, unspecified (principal)
CPT/HCPCS: 96374; 96375; 96376; 99284; J1200; J1885; J2765; J7030

== ENCOUNTER 2023-03-01 09:54 | Emergency (ER) | payer SELFPAY ==
[2023-03-01 10:09] VITALS: BP 142/99; PULSE 71; RESP 16; TEMP 36.5; O2SAT 99; BMI 42.2
[2023-03-01] MEDS: ondansetron 2 mg/ML SDV 2 mL 4 MG IVP (11:31)
[2023-03-01] MEDS: sodium chloride 0.9% 1,000 ML 999 ML IV (11:35)
--- NOTE | 2023-03-01 11:37 | ED_ITS ---
HPI - Headache 2 General: Chief Complaint: Headache Stated Complaint: headache,NVD Time Seen by Provider: 03/01/23 11:15 Source: patient Mode of arrival: ambulatory History of Present Illness: 43-year-old female presents emergency ro om with complaint of migraine that began early this morning. She has had previous migraines in the past this 1 has been little more intense she has tried the usual ibuprofen [id number] she normally treats it with Instat this became more intense she has more photophobia and autophobia that she had quite a bit of nausea and vomiting as well. No recent fever sweats chills no head trauma. She is also taken some Dramamine earlier. She states this is similar to migraine she has had previous just more intense than the typical MD elicited complaint: headache Onset (ago): hour(s) Onset description: suddenly Exacerbating factors: light and noise Relieving factors: nothing Associated symptoms: Reports nausea, photophobia and sound sensitivity; Deny chest pain, confusion, cough, diaphoresis, eye pain, eye redness, fever(s), lightheadedness, loss of vision, malaise, neck stiffness, numbness, paresthesias, pre-syncope, rash, seizures, short of breath, syncope, vomiting or weakness Review of Systems 2 Const: Denies: fever(s), chills, malaise or diaphoresis Card: Denies: chest pain, lightheadedness, syncope or pre-syncope Resp: Denies: dyspnea GI: Reports: nausea; Denies: abdominal pain or vomiting : Denies: dysuria, urinary frequency or urinary urgency Musc: Denies: neck pain or back pain Skin/Breast: Denies: rash Neuro: Denies: confusion PFSH ED 2 PFSH: Medical History Nicotine dependence, cigarettes, uncomplicated Generalized anxiety disorder Bipolar II disorder Mixed episodes Social History Smoking and tobacco/nicotine status: current every day tobacco/nicotine user cigarettes Packs smoked per day: 1 Physical Exam 2 Const: COMMON NORMALS: no acute distress GENERAL APPEARANCE: cooperative and comfortable ORIENTATION/CONSCIOUSNESS: Yes awake, Yes oriented to person, Yes oriented to place and Yes oriented to time HENMT: COMMON NORMALS: normocephalic, atraumatic and hearing grossly normal bilaterally HEAD & SCALP: normocephalic and atraumatic Eye: DIRECT OPHTHALMOSCOPY: Yes photophobia Resp: COMMON NORMALS: normal respiratory effort, No retractions, No use of accessory muscles and clear to auscultation bilaterally AUSCULTATION: clear to auscultation bilaterally Cardio: COMMON NORMALS: regular rate, regular rhythm and No murmurs present (Cardio) RATE: regular rate RHYTHM: regular rhythm GI: COMMON NORMALS: Soft to palpation and No hepatosplenomegaly present A USCULTATION: Yes normoactive bowel sounds PALPATION: Yes Soft to palpation, No Tenderness to palpation present (GI), No Guarding due to palpation present (GI) and Yes No hepatosplenomegaly present Extremity: COMMON NORMALS: normal to inspection, capillary refill normal, no clubbing, cyanosis or edema, no calf tenderness and no pedal edema Neuro: SENSORIUM/ORIENTATION: Yes oriented to person, Yes oriented to place and Yes oriented to time Skin: COMMON NORMALS: no rashes or lesions noted GENERAL SKIN EXAM: no rashes or lesions noted Course 2 Vital Signs: Vital signs: Vital Signs Temperature 97.7 F 03/01/23 10:09 Pulse Rate 71 03/01/23 10:09 Respiratory Rate 16 03/01/23 10:09 Blood Pressure 142/99 03/01/23 10:09 Pulse Oximetry 99 03/01/23 10:09 MDM - Headache Medical Decision Making Headache is improved by better than 50% at this point. Will discharge her home over follow-up with her primary care doctor. Encouraged rest the rest of the day return if worsens Medical Records I reviewed the patient's medical records. Lab Data I reviewed the patient's lab results. 03/01/23 11:35 03/01/23 11:35 Laboratory Results WBC 6.49 10^3/uL (3.29-11.43) 03/01/23 11:35 RBC 4.53 10^6/uL (3.85-5.65) 03/01/23 11:35 Hgb 13.10 g/dL (11.27-16.99) 03/01/23 11:35 Hct 38.4 % (36-47) 03/01/23 11:35 MCV 84.8 fl (85-98) L 03/01/23 11:35 MCH 28.9 pg (27-33) 03/01/23 11:35 MCHC 34.1 g/dL (30-55) 03/01/23 11:35 RDW 13.6 % (12.1-15.1) 03/01/23 11:35 Plt Count 225 10^3/cmm (157-399) 03/01/23 11:35 MPV 10.6 fL (7.4-10.4) H 03/01/23 11:35 Neut % (Auto) 69.8 % 03/01/23 11:35 Lymph % (Auto) 23.7 % 03/01/23 11:35 [place] % (Auto) 4.8 % 03/01/23 11:35 Eos % (Auto) 0.8 % 03/01/23 11:35 Baso % (Auto) 0.3 % 03/01/23 11:35 Neut # (Auto) 4.53 10^3/uL (1.8-7.7) 03/01/23 11:35 Lymph # (Auto) 1.5 10^3/uL (0.8-4.8) 03/01/23 11:35 [place] # (Auto) 0.3 10^3/uL (0.2-0.9) 03/01/23 11:35 Eos # (Auto) 0.1 10^3/uL (0.0-0.8) 03/01/23 11:35 Baso # (Auto) 0.0 10^3/uL (0.0-0.1) 03/01/23 11:35 Nucleated RBC % (auto) 0 % 03/01/23 11:35 Nucleated RBCs # 0.0 /100WBC 03/01/23 11:35 Sodium 138 mmol/L (136-145) 03/01/23 11:35 Potassium 4.1 mmol/L (3.5-5.1) 03/01/23 11:35 Chloride 103 mmol/L (98-107) 03/01/23 11:35 Carbon Dioxide 26 mmol/L (22-29) 03/01/23 11:35 Anion Gap 13.1 (5-19) 03/01/23 11:35 BUN 13 mg/dL (6-20) 03/01/23 11:35 Creatinine 0.5 mg/dL (0.5-0.9) 03/01/23 11:35 GFR Calculation 136.0 mL/min (90-130) H 03/01/23 11:35 Glucose 117 mg/dL (65-115) H 03/01/23 11:35 Calculated Osmolality 287 mOsm/kg (285-295) 03/01/23 11:35 Calcium 9.5 mg/dL (8.5-10.5) 03/01/23 11:35 Total Bilirubin 0.3 mg/dL (0.15-1.2) 03/01/23 11:35 AST 21 U/L (0-32) 03/01/23 11:35 ALT 20 U/L (0-33) 03/01/23 11:35 Alkaline Phosphatase 78 U/L (35-105) 03/01/23 11:35 Total Protein 7.2 g/dL (6.6-8.7) 03/01/23 11:35 Albumin 4.2 g/dL (3.5-5.2) 03/01/23 11:35 Globulin 3.0 g/dL (1.3-4.6) 03/01/23 11:35 HCG, Qual Negative (Negative) 03/01/23 11:35 All radiology interpretation(s) finalized by discharge Discharge Plan Discharge Patient Disposition: Home Clinical Impression: Migraine Condition: Stable Prescriptions: No Action hydrocodone-acetaminophen 7.5-325 mg tablet 1 tab PO Q8H PRN (Reason: Pain) Prilosec OTC 20 mg tablet,delayed release (DR/EC) 20 mg PO DAILY ibuprofen [Advil] 200 mg Tablet 800 mg PO Q6H PRN (Reason: pain/fever) Dramamine (meclizine) 25 mg Tablet 50 mg PO Q6H PRN (Reason: Dizziness Or Vertigo) albuterol sulfate 90 mcg/actuation Hfa Aerosol Inhaler 2 puff INHALATION QID PRN (Reason: Shortness Of Breath) Discharge Orders: Discharge ED (Routine); Ordered 03/01/23 Ordered By: Oneil Mchugh Referrals: Armani Aguila MD [Primary Care Provider] - Discharge Diet: Usual diet Discharge Activity: Increase activity as tolerated Patient Instructions: Migraine Headache (ED), Opioid Safety, Pain Management Activity Restrictions/Additional Instructions: Thank you for choosing [facility] for your healthcare needs today. Please realize this is an emergency room and that we are providing you with a medical screening exam and this may not be complete and all inclusive of all the testing and or work up that you may need to determine your ailment or severity of your illness. It is very important that you follow up as instructed or that you return to the Emergency Department should you have concerns or if your condition changes or worsens in any way. Follow-up with your primary care doctor. 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
[2023-03-01 11:43] LABS: Basophils % 0.3 %; Eosinophils # 0.1 10^3/uL (0.0-0.8); Eosinophils % 0.8 %; Hematocrit 38.4 % (36-47); Lymphocytes # 1.5 10^3/uL (0.8-4.8); Lymphocytes % 23.7 %; Mean Corpuscular HGB Conc 34.1 g/dL (30-55); Mean Corpuscular Hemoglobin 28.9 pg (27-33); Mean Corpuscular Volume 84.8 fl (85-98); Mean Platelet Volume 10.6 fL (7.4-10.4); Monocytes # 0.3 10^3/uL (0.2-0.9); Monocytes % 4.8 %; Neutrophils # 4.53 10^3/uL (1.8-7.7); Neutrophils % 69.8 %; Nucleated Red Blood Cells % 0 %; Platelet Count 225 10^3/cmm (157-399); Red Blood Count 4.53 10^6/uL (3.85-5.65); Red Cell Distribution Width 13.6 % (12.1-15.1); White Blood Count 6.49 10^3/uL (3.29-11.43)
[2023-03-01 11:58] LABS: HCG, Serum Qual Negative (Negative)
[2023-03-01 11:59] LABS: Alanine Aminotransferase 20 U/L (0-33); Albumin Level 4.2 g/dL (3.5-5.2); Alkaline Phosphatase 78 U/L (35-105); Anion Gap 13.1 (5-19); Aspartate Amino Transferase 21 U/L (0-32); Blood Urea Nitrogen 13 mg/dL (6-20); Calcium 9.5 mg/dL (8.5-10.5); Carbon Dioxide 26 mmol/L (22-29); Chloride 103 mmol/L (98-107); Glucose 117 mg/dL (65-115); Osmolality Calculated 287 mOsm/kg (285-295); Potassium 4.1 mmol/L (3.5-5.1); Sodium 138 mmol/L (136-145); Total Bilirubin 0.3 mg/dL (0.15-1.2); Total Protein 7.2 g/dL (6.6-8.7)
[2023-03-01] MEDS: ketorolac 30 mg/mL INJ IVP (12:15)
[2023-03-01] MEDS: diphenhydrAMINE 50 mg/mL SDV 1mL IVP (12:16)
[2023-03-01] MEDS: valproic acid inj 500 MG in sodium chloride 0.9% 50 ML 55 MG IV (12:17)
[2023-03-01 14:47] VITALS: BP 142/99; PULSE 71; RESP 16; TEMP 36.5; O2SAT 99
== END 2023-03-01 14:52 | disposition home or self-care (01) ==
PROVIDERS: Emergency Provider Family Medicine; PCP Family Medicine
DX: G43.909 Migraine, unspecified, not intractable, without status migrainosus (principal); F17.210 Nicotine dependence, cigarettes, uncomplicated
CPT/HCPCS: 80053; 84703; 85025; 96374; 96375; 99284; J1200; J1885; J2405; J3490; J7030

== ENCOUNTER 2024-01-28 18:35 | Emergency (ER) | payer SELFPAY ==
[2024-01-28 18:40] VITALS: BP 159/108; PULSE 72; RESP 18; TEMP 36.7; O2SAT 97; BMI 44.6
--- NOTE | 2024-01-28 19:20 | ED_ITS ---
HPI - Headache General: Chief Complaint: Headache Stated Complaint: severe pain worsening behind left ear Time Seen by Provider: 01/28/24 19:01 History of Present Illness: This patient is a 43-year-old white female who presents to the ER complaining of a headache behind her left ear. She states she woke up with it at 630 this morning. She has had some nausea but no vomiting. She has been taking [id number] pain medications as well as Imitrex without any relief. She does have a history of migraines. Associated symptoms: Reports nausea Related Data Home Medications Medication Instructions Recorded Confirmed hydrocodone 7.5 mg-acetaminophen 1 tab PO Q8H PRN Pain 04/26/19 03/01/23 325 mg tablet omeprazole magnesium 20 mg 20 mg PO DAILY 04/26/19 03/01/23 tablet,delayed release (Prilosec OTC) ibuprofen 200 mg tablet (Advil) 800 mg PO Q6H PRN pain/fever 08/17/20 03/01/23 albuterol sulfate 90 mcg/actuation 2 puff inhalation QID PRN 11/06/22 03/01/23 aerosol inhaler Shortness Of Breath meclizine 25 mg tablet (Dramamine 50 mg PO Q6H PRN Dizziness Or 03/01/23 03/01/23 (meclizine)) Vertigo Allergies Allergy/AdvReac Type Severity Reaction Status Date / Time codeine Allergy Unknown hives Verified 01/28/24 18:43 levothyroxine Allergy Unknown tingling Verified 01/28/24 18:43 feeling promethazine Allergy Unknown Unknown Verified 01/28/24 18:43 topiramate [From Topamax] Allergy Unknown chest pain Verified 01/28/24 18:43 Review of Systems General: Reports: 10 or more systems reviewed and unremarkable except in HPI and below GI: Reports: nausea Neuro: Reports: headache(s) PFSH ED PFSH: Medical History Nicotine dependence, cigarettes, uncomplicated Generalized anxiety disorder Bipolar II disorder Mixed episodes Social History Smoking and tobacco/nicotine status: current every day tobacco/nicotine user cigarettes Packs smoked per day: 1 Physical Exam Const: COMMON NORMALS: patient oriented x3 and no limitations GENERAL APPEARANCE: cooperative and comfortable HENMT: COMMON NORMALS: normocephalic, atraumatic, Normal nasal mucous membranes and turbinates present, moist oral mucous membranes and oropharynx normal HEAD & SCALP: normal to inspection, normocephalic and atraumatic FACE & SINUS: normal facial exam NOSE: Normal nasal mucous membranes and turbinates present Eye: COMMON NORMALS: Equal, round and reactive pupils present, EOMs intact bilaterally and conjunctivae normal GENERAL EYE: appearance normal, both eyes and all related structures CONJUNCTIVA: Yes conjunctivae normal PUPIL: Yes Equal, round and reactive pupils present Neck/C-Spine: COMMON NORMALS: supple and no JVD Chest: COMMONS NORMALS: normal inspection of the chest Resp: COMMON NORMALS: normal respiratory effort and clear to auscultation bilaterally AUSCULTATION: clear to auscultation bilaterally Cardio: COMMON NORMALS: no JVD, regular rate, regular rhythm, No gallops present (Cardio), No murmurs present (Cardio) and No rub (Cardio) RATE: regular rate RHYTHM: regular rhythm GI: COMMON NORMALS: Normal to inspection, nondistended, normoactive bowel sounds present, Soft to palpation and non-tender AUSCULTATION: Yes normoactive bowel sounds PALPATION: Yes Soft to palpation : COMMON NORMALS: Yes no CVA tenderness BLADDER/KIDNEY EXAM: Yes no CVA tenderness Back/Pelvis: COMMON NORMALS: no CVA tenderness and thoracic and lumbar spine normal to inspection Extremity: COMMON NORMALS: normal to inspection Neuro: COMMON NORMALS: patient oriented x3 and CN's II-XII intact bilaterally Psych: COMMON NORMALS: mental status grossly normal, Normal thought process present and cooperative THOUGHT PROCESS: Normal thought process present Skin: COMMON NORMALS: no rashes or lesions noted, turgor normal and no jaundice GENERAL SKIN EXAM: no rashes or lesions noted and turgor normal Course Vital Signs: Vital signs: Vital Signs Temperature 98.0 F 01/28/24 18:40 Pulse Rate 72 01/28/24 18:40 Respiratory Rate 18 01/28/24 19:36 Blood Pressure 159/108 01/28/24 18:40 Pulse Oximetry 98 01/28/24 19:36 Oxygen Delivery Me thod Room Air 01/28/24 18:40 MDM - Headache Medical Decision Making Patient was given an injection of morphine for pain in the emergency department. She was discharged in stable condition instructed to follow-up with primary care physician as needed. No radiology studies performed this visit Discharge Plan Discharge Patient Disposition: Home Clinical Impression: Headache Qualifiers: Headache type: unspecified Headache chronicity pattern: acute headache Intractability: not intractable Qualified Code(s): R51.9 - Headache, unspecified Condition: Stable Prescriptions: No Action hydrocodone-acetaminophen 7.5-325 mg tablet 1 tab PO Q8H PRN (Reason: Pain) Prilosec OTC 20 mg tablet,delayed release (DR/EC) 20 mg PO DAILY ibuprofen [Advil] 200 mg Tablet 800 mg PO Q6H PRN (Reason: pain/fever) Dramamine (meclizine) 25 mg Tablet 50 mg PO Q6H PRN (Reason: Dizziness Or Vertigo) albuterol sulfate 90 mcg/actuation Hfa Aerosol Inhaler 2 puff INHALATION QID PRN (Reason: Shortness Of Breath) Discharge Orders: Discharge ED (Routine); Ordered 01/28/24 Ordered By: Jus Chahal Referrals: Armani Aguila MD [Primary Care Provider] - Patient Instructions: Acute Headache (DC), Pain Management 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
[2024-01-28 19:36] VITALS: RESP 18; O2SAT 98
[2024-01-28] MEDS: morphine 4 mg/mL SDV 1 mL 10 MG IM (19:36)
[2024-01-28] MEDS: ondansetron 4 MG Tablet PO (19:36)
[2024-01-28 20:33] VITALS: BP 173/111; PULSE 83; RESP 18; O2SAT 98
== END 2024-01-28 19:46 | disposition home or self-care (01) ==
PROVIDERS: Emergency Provider Emergency Medicine; PCP Family Medicine
DX: R51.9 Headache, unspecified (principal); F17.210 Nicotine dependence, cigarettes, uncomplicated
CPT/HCPCS: 96372; 99284; J2270; Q0162

== ENCOUNTER 2024-07-24 14:50 | Emergency (ER) | payer OTHER, SELFPAY ==
[2024-07-24 14:51] VITALS: BP 157/97; PULSE 83; RESP 18; TEMP 36.8; O2SAT 98; BMI 48.9
[2024-07-24 15:05] VITALS: BP 169/100; PULSE 85; O2SAT 96
--- NOTE | 2024-07-24 15:35 | CTR_ITS ---
PROCEDURE INFORMATION: Exam: CT Abdomen And Pelvis With Contrast Exam date and time: 07/24/2024 4:35 PM Age: 44 years old Clinical indication: Abdominal pain; Generalized; Prior surgery; Surgery date: 6+ months; Surgery type: Csection x2, hysterectomy, gb; Additional info: Left lower abdominal/ inguinal pain post injury, concerns for inguinal strain vs worsening indirect hernia TECHNIQUE: Imaging protocol: Computed tomography of the abdomen and pelvis with contrast. Radiation optimization: All CT scans at this facility use at least one of these dose optimization techniques: automated exposure control; mA and/or kV adjustment per patient size (includes targeted exams where dose is matched to clinical indication); or iterative reconstruction. Contrast material: OMNIPAQUE 350; Contrast volume: 100 ml; Contrast route: INTRAVENOUS (IV); COMPARISON: abdomen limited [id number] 06/17/2021 8:57 AM RADIATION DOSE METRICS: Total DLP (mGy-cm): 1258.03 FINDINGS: Liver: Normal. No mass. Gallbladder and biliary ducts: Cholecystectomy. No ductal dilation. Pancreas: Normal. No ductal dilation. Spleen: Enlarged spleen measuring 15 cm in length. Adrenal glands: Normal. No mass. Kidneys and ureters: A couple simple appearing cyst noted in the right kidney measuring up to 2 cm in size. No hydronephrosis. Stomach and bowel: Unremarkable. No obstruction. No mucosal thickening. Appendix: No evidence of appendicitis. Intraperitoneal space: Unremarkable. No free air. No significant fluid collection. Vasculature: Unremarkable. No abdominal aortic aneurysm. Lymph nodes: Unremarkable. No enlarged lymph nodes. Urinary bladder: Unremarkable as visualized. Reproductive: Hysterectomy. Couple left adnexal simple appearing cysts noted measuring up to 4.2 cm in size. Bones/joints: No acute fracture. Soft tissues: Large ventral hernia in the left lower abdomen measuring 12.7 x 6.5 x 12.7 cm. The hernia contains mesenteric fat without any bowel loops. CT/CT abdomen pelvis w con* [id number] IMPRESSION: 1. No acute findings. 2. Large ventral hernia in the left lower abdomen. 3. A couple left adnexal simple appearing cysts noted measuring up to 4.2 cm in size. 4. Mild splenomegaly. COMMENTS: Consistent with the [employer]'s Incidental Findings Committee white paper (J Am Remedios Radiol 2018): Any incidental renal lesion less than 1 cm or classified as too small to characterize, or any incidental cystic renal lesion characterized as simple-appearing, is likely benign. No follow-up imaging is recommended for these lesions per consensus recommendations based on imaging criteria.
[2024-07-24] MEDS: iohexol 350 mg/mL 500 mL Btl (per mL) PO (15:45)
--- NOTE | 2024-07-24 15:53 | W.ED.ABDPA2 ---
HPI - Abdominal Pain General: Chief Complaint: Abdominal Pain Stated Complaint: hernia left side lower abdominal Time Seen by Provider: 07/24/24 15:09 History of Present Illness: 44-year-old female presents to the ER with a known history of previous inguinal hernia presents after lifting some heavy boxes of liquor prior to arrival about an hour ago when she felt a pull and additional pain in her left inguinal region patient is concerned that her hernia may have gotten larger she denies any bowel or bladder incontinence issues or constipation reports mild nausea with no vomiting, she reports of burning sensation located to her in her left groin she does not report having any known obvious palpable masses worse than normal for her she denies any having any other associate symptoms. She did not take anything for this prior to arrival. Associated Symptoms: Reports nausea; Denies chills, fever(s) and vomiting Related Data Home Medications ?Medication ?Instructions ?Recorded ?Confirmed hydrocodone 7.5 mg-acetaminophen 1 tab PO Q8H PRN Pain 04/26/19 07/24/24 325 mg tablet sumatriptan succinate 50 mg tablet 50 mg PO PRN PRN Migraine Headache 07/24/24 07/24/24 Previous Rx's ?Medication ?Instructions ?Recorded tramadol 50 mg tablet 50 mg PO Q8H PRN pain #14 tabs 07/24/24 Allergies Allergy/AdvReac Type Severity Reaction Status Date / Time codeine Allergy Unknown hives Verified 07/24/24 14:57 levothyroxine Allergy Unknown tingling Verified 07/24/24 14:57 feeling promethazine Allergy Unknown Unknown Verified 07/24/24 14:57 topiramate (From Topamax) Allergy Unknown chest pain Verified 07/24/24 14:57 Review of Systems General: Reports: 10 or more systems reviewed and unremarkable except in HPI and below Const: Denies: fever(s), chills, fatigue or malaise Eyes: Denies: change in vision or blurry vision Card: Denies: chest pain or palpitations Resp: Denies: dyspnea or productive cough GI: Reports: abdominal pain and nausea; Denies: vomiting : Denies: flank pain Musc: Reports: joint pain; Denies: extremity pain or extremity swelling Skin/Breast: Denies: rash or pruritus Neuro: Denies: headache(s) Psych: Denies: anxiety or depression Quinn/Lymph: Denies: easy bleeding All/Imm: Denies: urticaria, throat swelling or facial swelling PFSH ED PFSH: Medical History Nicotine dependence, cigarettes, uncomplicated Generalized anxiety disorder Bipolar II disorder Mixed episodes Social History Smoking and tobacco/nicotine status: current every day tobacco/nicotine user cigarettes Packs smoked per day: 1 Physical Exam Const: COMMON NORMALS: no acute distress, patient oriented x3 and healthy appearing HENMT: COMMON NORMALS: normocephalic and atraumatic HEAD & SCALP: normocephalic and atraumatic Eye: COMMON NORMALS: Equal, round and reactive pupils present and EOMs intact bilaterally PUPIL: Yes Equal, round and reactive pupils present Neck/C-Spine: COMMON NORMALS: full ROM, supple and no JVD Lymph: LYMPHATIC: no lymphadenopathy noted Chest: COMMONS NORMALS: normal inspection of the chest and normal palpation of entire chest wall Resp: COMMON NORMALS: normal respiratory effort, No retractions and clear to auscultation bilaterally EFFORT & INSPECTION: Yes able to speak in complete sentences and Yes symmetric chest movement AUSCULTATION: clear to auscultation bilaterally Cardio: COMMON NORMALS: no JVD, regular rate and regular rhythm RATE: regular rate RHYTHM: regular rhythm GI: COMMON NORMALS: Normal to inspection, nondistended, normoactive bowel sounds present (Moderate pain to palpation located in the left inguinal region no obvious p) and Soft to palpation PALPATION: Yes Soft to palpation : COMMON NORMALS: Yes no CVA tenderness BLADDER/KIDNEY EXAM: Yes no CVA tenderness Back/Pelvis: COMMON NORMALS: no CVA tenderness Extremity: COMMON NORMALS: normal to inspection and full ROM Neuro: COMMON NORMALS: patient oriented x3, CN's II-XII intact bilaterally, moves all extremities and no focal motor deficits Psych: COMMON NORMALS: mental status grossly normal, Normal thought process present, cooperative and normal affect THOUGHT PROCESS: Normal thought process present Skin: COMMON NORMALS: no rashes or lesions noted GENERAL SKIN EXAM: no rashes or lesions noted Course Vital Signs: Vital signs: Vital Signs Temperature 98.3 F 07/24/24 14:51 Pulse Rate 89 07/24/24 16:30 Respiratory Rate 18 07/24/24 16:30 Blood Pressure 169/100 07/24/24 15:05 Pulse Oximetry 99 07/24/24 16:30 Oxygen Delivery Me thod Room Air 07/24/24 16:30 MDM - Abdominal Pain Medical Decision Making Due to patient's symptoms and condition IV established basic lab work and imaging will be obtained we will continue to follow. To further rule out incarcerated inguinal hernia. Patient will be provided fentanyl and Zofran for her associated symptoms an IV will be established. Patient was found to have an inguinal strain to have a large ventral hernia but no incarceration appreciated she also was found to have a couple ovarian cyst on the left the patient is stable for discharge home did advise further follow-up with primary care in 3 to 5 days in which patient instructed to return the interim if any of her symptoms persist or worse. Lab Data 07/24/24 15:45 07/24/24 15:45 Labs/Radiology: Radiology Impressions Abdomen/Pelvis CT 07/24/24 15:35 IMPRESSION: 1. No acute findings. 2. Large ventral hernia in the left lower abdomen. 3. A couple left adnexal simple appearing cysts noted measuring up to 4.2 cm in size. 4. Mild splenomegaly. COMMENTS: Consistent with the [employer]'s Incidental Findings Committee white paper (J Am [employer]iol 2018): Any incidental renal lesion less than 1 cm or classified as too small to characterize, or any incidental cystic renal lesion characterized as simple-appearing, is likely benign. No follow-up imaging is recommended for these lesions per consensus recommendations based on imaging criteria. Laboratory Results WBC 6.42 10^3/uL (3.29-11.43) 07/24/24 15:45 RBC 4.38 10^6/uL (3.85-5.65) 07/24/24 15:45 Hgb 12.30 g/dL (11.27-16.99) 07/24/24 15:45 Hct 37.7 % (36-47) 07/24/24 15:45 MCV 86.1 fl (85-98) 07/24/24 15:45 MCH 28.1 pg (27-33) 07/24/24 15:45 MCHC 32.6 g/dL (30-55) 07/24/24 15:45 RDW 14.0 % (12.1-15.1) 07/24/24 15:45 Plt Count 225 10^3/cmm (157-399) 07/24/24 15:45 MPV 10.8 fL (7.4-10.4) H 07/24/24 15:45 Neut % (Auto) 42.5 % 07/24/24 15:45 Lymph % (Auto) 48.8 % 07/24/24 15:45 [place] % (Auto) 5.3 % 07/24/24 15:45 Eos % (Auto) 2.6 % 07/24/24 15:45 Baso % (Auto) 0.6 % 07/24/24 15:45 Neut # (Auto) 2.73 10^3/uL (1.8-7.7) 07/24/24 15:45 Lymph # (Auto) 3.1 10^3/uL (0.8-4.8) 07/24/24 15:45 [place] # (Auto) 0.3 10^3/uL (0.2-0.9) 07/24/24 15:45 Eos # (Auto) 0.2 10^3/uL (0.0-0.8) 07/24/24 15:45 Baso # (Auto) 0.0 10^3/uL (0.0-0.1) 07/24/24 15:45 Nucleated RBC % (auto) 0 % 07/24/24 15:45 Nucleated RBCs # 0.0 /100WBC 07/24/24 15:45 Sodium 140 mmol/L (136-145) 07/24/24 15:45 Potassium 3.4 mmol/L (3.5-5.1) L 07/24/24 15:45 Chloride 104 mmol/L (98-107) 07/24/24 15:45 Carbon Dioxide 24 mmol/L (22-29) 07/24/24 15:45 Anion Gap 15.4 (5-19) 07/24/24 15:45 BUN 13 mg/dL (6-20) 07/24/24 15:45 Creatinine 0.5 mg/dL (0.5-0.9) 07/24/24 15:45 GFR Calculation 135.3 mL/min (90-130) H 07/24/24 15:45 Glucose 110 mg/dL (65-115) 07/24/24 15:45 Calculated Osmolality 291 mOsm/kg (285-295) 07/24/24 15:45 Calcium 9.0 mg/dL (8.5-10.5) 07/24/24 15:45 Total Bilirubin 0.3 mg/dL (0.15-1.2) 07/24/24 15:45 AST 18 U/L (0-32) 07/24/24 15:45 ALT 18 U/L (0-33) 07/24/24 15:45 Alkaline Phosphatase 69 U/L (35-105) 07/24/24 15:45 C-Reactive Protein 5.6 mg/L (0.0-4.9) H 07/24/24 15:45 Total Protein 6.6 g/dL (6.6-8.7) 07/24/24 15:45 Albumin 3.9 g/dL (3.5-5.2) 07/24/24 15:45 Globulin 2.7 g/dL (1.3-4.6) 07/24/24 15:45 Urine Color Yellow (Yellow) 07/24/24 16:00 Urine Appearance Clear (CLEAR) 07/24/24 16:00 Urine pH 6.5 (5-7) 07/24/24 16:00 Ur Specific [place] 1.006 (1.005-1.030) 07/24/24 16:00 Urine Protein Negative (Negative) 07/24/24 16:00 Urine Glucose (UA) Negative (Normal) 07/24/24 16:00 Urine Ketones Negative (Negative) 07/24/24 16:00 Urine Blood Negative (Negative) 07/24/24 16:00 Urine Nitrate Negative (Negative) 07/24/24 16:00 Urine Bilirubin Negative (Negative) 07/24/24 16:00 Urine Urobilinogen 0.2 mg/dL (Negative) 07/24/24 16:00 Ur Leukocyte Esterase Negative (Negative) 07/24/24 16:00 Urine RBC 0-2 /hpf (0-2) 07/24/24 16:00 Urine WBC 0-5 /hpf (0-5) 07/24/24 16:00 Ur Squamous Epith Cells 0-5 /hpf (0-5) 07/24/24 16:00 Amorphous Sediment Not Reportable 07/24/24 16:00 Urine Bacteria None seen /hpf (NONE) 07/24/24 16:00 Hyaline Casts 0-4 /lpf H 07/24/24 16:00 Urine Opiates Screen Positive ng/mL (Negative) H 07/24/24 16:00 Ur Barbiturates Screen Negative ng/mL (Negative) 07/24/24 16:00 Ur Phencyclidine Scrn Negative ng/mL (Negative) 07/24/24 16:00 Ur Amphetamines Screen Negative ng/mL (Negative) 07/24/24 16:00 U Benzodiazepines Scrn Negative ng/mL (Negative) 07/24/24 16:00 Urine Cocaine Screen Negative ng/mL (Negative) 07/24/24 16:00 U Marijuana (THC) Screen Negative ng/mL (Negative) 07/24/24 16:00 All radiology interpretation(s) finalized by discharge Discharge Plan Discharge Patient Disposition: Home Clinical Impression: Strain of left inguinal muscle, Ventral hernia, Ovarian cyst Condition: Stable Prescriptions: New tramadol 50 mg tablet 50 mg PO Q8H PRN (Reason: pain) Qty: 14 0RF No Action hydrocodone-acetaminophen 7.5-325 mg tablet 1 tab PO Q8H PRN (Reason: Pain) sumatriptan succinate 50 mg tablet 50 mg PO PRN PRN (Reason: Migraine Headache) Discharge Orders: Discharge ED (Routine); Ordered 07/24/24 Ordered By: Jovon Cisneros Referrals: Armani Aguila MD [Primary Care Provider, [facility]] - 1-3 days Discharge Diet: Advance as tolerated Discharge Activity: Increase activity as tolerated Patient Instructions: Ovarian Cyst (ED), Groin Strain (ED), Ventral Hernia (ED), Opioid Safety, Pain Management Stand Alone Forms: Work/School Release Print Language: Turkmen 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
[2024-07-24 16:00] LABS: Basophils % 0.6 %; Eosinophils # 0.2 10^3/uL (0.0-0.8); Eosinophils % 2.6 %; Hematocrit 37.7 % (36-47); Lymphocytes # 3.1 10^3/uL (0.8-4.8); Lymphocytes % 48.8 %; Mean Corpuscular HGB Conc 32.6 g/dL (30-55); Mean Corpuscular Hemoglobin 28.1 pg (27-33); Mean Corpuscular Volume 86.1 fl (85-98); Mean Platelet Volume 10.8 fL (7.4-10.4); Monocytes # 0.3 10^3/uL (0.2-0.9); Monocytes % 5.3 %; Neutrophils # 2.73 10^3/uL (1.8-7.7); Neutrophils % 42.5 %; Nucleated Red Blood Cells % 0 %; Platelet Count 225 10^3/cmm (157-399); Red Blood Count 4.38 10^6/uL (3.85-5.65); White Blood Count 6.42 10^3/uL (3.29-11.43)
[2024-07-24 16:14] LABS: Bilirubin Urine Negative (Negative); Blood Urine Negative (Negative); Glucose Urine UA Negative (Normal); Ketones Urine Negative (Negative); Leukocyte Esterase Urine Negative (Negative); Nitrate Urine Negative (Negative); Protein Urine Negative (Negative); Specific Gravity, Urine 1.006 (1.005-1.030); Urine Appearance Clear (CLEAR); Urine Color Yellow (Yellow); Urobilinogen Urine 0.2 mg/dL (Negative); pH Urine 6.5 (5-7)
[2024-07-24 16:17] LABS: Add Urine Microscopic? YES; Bacteria Urine None Seen /hpf; Hyaline Casts Urine 0-4 /lpf; RBC Urine 0-2 /hpf (0-2); Squamous Epithelial Cell Urine 0-5 /hpf (0-5); WBC Urine 0-5 /hpf (0-5)
[2024-07-24 16:21] LABS: Amphetamines Screen Urine Negative (Negative); Barbiturates Screen Urine Negative (Negative); Benzodiazepines Screen Urine Negative (Negative); Cocaine Screen Urine Negative (Negative); Opiate Screen Urine Positive (Negative); PCP Screen Urine Negative (Negative); THC Screen Urine Negative (Negative)
[2024-07-24 16:21] LABS: Alanine Aminotransferase 18 U/L (0-33); Albumin Level 3.9 g/dL (3.5-5.2); Alkaline Phosphatase 69 U/L (35-105); Anion Gap 15.4 (5-19); Aspartate Amino Transferase 18 U/L (0-32); Blood Urea Nitrogen 13 mg/dL (6-20); C Reactive Protein 5.6 mg/L (0.0-4.9); Carbon Dioxide 24 mmol/L (22-29); Chloride 104 mmol/L (98-107); Creatinine Clr Calc Pharmacy 195.5921; Globulin 2.7 g/dL (1.3-4.6); Glomerular Filtration Rate 135.3 mL/min (90-130); Glucose 110 mg/dL (65-115); Osmolality Calculated 291 mOsm/kg (285-295); Potassium 3.4 mmol/L (3.5-5.1); Sodium 140 mmol/L (136-145); Total Bilirubin 0.3 mg/dL (0.15-1.2); Total Protein 6.6 g/dL (6.6-8.7)
[2024-07-24 16:30] VITALS: PULSE 89; RESP 18; O2SAT 99
[2024-07-24] MEDS: ondansetron 2 mg/ML SDV 2 mL 4 MG IVP (16:30)
[2024-07-24] MEDS: fentaNYL 50 mcg/mL INJ 2mL IVP (16:30)
[2024-07-24] MEDS: sodium chloride 0.9% 500 ML IV (16:35)
[2024-07-24] MEDS: iohexol 350 mg/mL 500 mL Btl (per mL) IV (16:40)
[2024-07-24 17:30] VITALS: BP 154/98; PULSE 86; O2SAT 96
[2024-07-24 17:55] VITALS: BP 154/98; PULSE 86; O2SAT 98
== END 2024-07-24 17:56 | disposition home or self-care (01) ==
PROVIDERS: Emergency Provider Emergency Medicine; PCP Family Medicine
DX: S76.812A Strain of other specified muscles, fascia and tendons at thigh level, left thigh, initial encounter (principal); K43.9 Ventral hernia without obstruction or gangrene; N83.292 Other ovarian cyst, left side; F17.210 Nicotine dependence, cigarettes, uncomplicated; X50.0XXA Overexertion from strenuous movement or load, initial encounter
CPT/HCPCS: 36415; 74177; 80053; 80306; 81001; 85025; 86140; 96361; 96374; 96375; 99285; J2405; J3010; J7040

== ENCOUNTER 2024-08-02 14:32 | Outpatient (CLI) | payer OTHER, SELFPAY ==
--- NOTE | 2024-08-02 | MM_ITS ---
WS: [id number] BILATERAL 3D TOMOSYNTHESIS DIGITAL SCREENING MAMMOGRAPHY WITH CAD CLINICAL INFORMATION: ANNUAL SCREENING HISTORY: Screening mammogram. No current complaints. COMPARISON: Baseline TECHNIQUE: Bilateral CC and MLO views. FINDINGS: Scattered fibroglandular densities bilaterally. No suspicious focal mass, asymmetry, calcifications, or architectural distortion. No evidence of malignancy. A few tiny incidental punctate calcifications. MM/MM scr tomosynthesis [id number] IMPRESSION: DENSITY: There are scattered areas of fibroglandular density. BI-RADS: 2 - Benign. FOLLOW UP: 1 Year Follow-up Recommend return to annual screening mammography.
== END 2024-08-02 14:33 | disposition home or self-care (01) ==
LOC: RAD 14:33
PROVIDERS: PCP Family Medicine; Visit Provider Family Medicine
DX: Z12.31 Encounter for screening mammogram for malignant neoplasm of breast (principal); R92.323 Mammographic fibroglandular density, bilateral breasts
CPT/HCPCS: 77063; 77067

== ENCOUNTER 2024-10-27 14:31 | Emergency (ER) | payer OTHER, SELFPAY ==
[2024-10-27 14:41] VITALS: BP 189/131; PULSE 75; RESP 16; O2SAT 99
--- NOTE | 2024-10-27 16:07 | CT_ITS ---
WS: [id number] CT HEAD TECHNIQUE: Noncontrast CT of the head obtained from the skullbase to the vertex. CLINICAL INFORMATION: thunderclap headache DLP: 1096.[address] scans at [facility] use at least one of these dose optimization techniques: automated exposure control; mA and/or kV adjustment per patient size (includes targeted exams where dose is matched to clinical indication); or iterative reconstruction. FINDINGS: No evidence of intracranial hemorrhage or mass effect. Ventricular system and basal cisterns are patent. No extra-axial fluid collections. No evidence of mass or mass effect. Normal tyler-white differentiation. Paranasal sinuses and mastoid air cells are well aerated. .Normal visualized soft tissues. CT/CT head wo con* [id number] IMPRESSION: 1. No evidence of intracranial hemorrhage or mass effect. 2. No acute intracranial findings.
[2024-10-27] MEDS: metoclopramide 5 mg/mL SDV 2 mL 10 MG IVP (16:22)
[2024-10-27] MEDS: diphenhydrAMINE 50 mg/mL SDV 1mL IVP (16:25)
[2024-10-27] MEDS: HYDROcodone-acetaminophen 7.5-325 mg Tablet 1 TAB PO (16:30)
--- NOTE | 2024-10-27 16:49 | W.ED.HA ---
HPI - Headache General: Chief Complaint: Headache Stated Complaint: meredith / dizzy Time Seen by Provider: 10/27/24 14:48 Source: patient Mode of arrival: ambulatory Limitations: no limitations History of Present Illness: Patient is a 44-year-old female with past medical history of migraines who presents emerged department complaining of severe headache for a week. She states that headache began during intercourse, when during orgasm she had a thunderclap headache and that pain has been severe since. States that she has been dizzy and has had trouble walking. Does report a history of migraines and states that they have similar features, but that this 1 feels worse. No relief from Imitrex at home or her other abortive measures. She also notes that her blood pressure has been elevated and she has been more irritable, blood pressure 189/131 with triage. Worse with light and sound. No fever, altered mental status, focal neurological deficit, or other symptoms reported. MD elicited complaint: headache Pertinent past history: migraines Onset (ago): week(s) (1) Onset description: suddenly, like a thunderclap and during intercourse Location: diffuse and down into neck Severity: severe Exacerbating factors: none and light Associated symptoms: Deny chest pain, fever(s), lightheadedness, nausea, rash or vomiting Related Data Home Medications ?Medication ?Instructions ?Recorded ?Confirmed hydrocodone 7.5 mg-acetaminophen 1 tab PO Q8H PRN Pain 04/26/19 07/24/24 325 mg tablet sumatriptan succinate 50 mg tablet 50 mg PO PRN PRN Migraine Headache 07/24/24 07/24/24 Previous Rx's ?Medication ?Instructions ?Recorded tramadol 50 mg tablet 50 mg PO Q8H PRN pain #14 tabs 07/24/24 Allergies Allergy/AdvReac Type Severity Reaction Status Date / Time codeine Allergy Unknown hives Verified 07/24/24 14:57 levothyroxine Allergy Unknown tingling Verified 07/24/24 14:57 feeling promethazine Allergy Unknown Unknown Verified 07/24/24 14:57 topiramate (From Topamax) Allergy Unknown chest pain Verified 07/24/24 14:57 Review of Systems General: Reports: 10 or more systems reviewed and unremarkable except in HPI and below Const: Denies: fever(s), chills or fatigue Eyes: Denies: change in vision ENMT: Denies: throat pain, ear or mastoid pain or nasal discharge Card: Denies: chest pain, palpitations, swelling of feet/ankles or lightheadedness Resp: Denies: dyspnea, productive cough or wheezing GI: Denies: abdominal pain, nausea, vomiting, diarrhea or constipation : Denies: flank pain, difficulty voiding, dysuria or urinary frequency Musc: Denies: neck pain, back pain or joint pain Skin/Breast: Denies: rash Neuro: Reports: headache(s), difficulty walking and dizziness; Denies: numbness in extremities or weakness in extremities Psych: Reports: irritability PFSH ED PFSH: Medical History Nicotine dependence, cigarettes, uncomplicated Generalized anxiety disorder Bipolar II disorder Mixed episodes Social History Smoking and tobacco/nicotine status: current every day tobacco/nicotine user cigarettes Packs smoked per day: 1 Physical Exam Const: COMMON NORMALS: patient oriented x3 and no limitations GENERAL APPEARANCE: cooperative and well developed NUTRITIONAL APPEARANCE: obese ORIENTATION/CONSCIOUSNESS: Yes awake, Yes oriented to person, Yes oriented to place and Yes oriented to time HENMT: COMMON NORMALS: normocephalic, atraumatic and hearing grossly normal bilaterally HEAD & SCALP: normocephalic and atraumatic Eye: COMMON NORMALS: Equal, round and reactive pupils present, EOMs intact bilaterally and conjunctivae normal CONJUNCTIVA: Yes conjunctivae normal PUPIL: Yes Equal, round and reactive pupils present Neck/C-Spine: COMMON NORMALS: full ROM, supple and no JVD Resp: COMMON NORMALS: normal respiratory effort, No retractions, No use of accessory muscles and clear to auscultation bilaterally AUSCULTATION: clear to auscultation bilaterally Cardio: COMMON NORMALS: no JVD, regular rate, regular rhythm, No clicks present (Cardio), No murmurs present (Cardio) and No rub (Cardio) RATE: regular rate RHYTHM: regular rhythm GI: COMMON NORMALS: Normal to inspection, nondistended, normoactive bowel sounds present, Soft to palpation and non-tender AUSCULTATION: Yes normoactive bowel sounds PALPATION: Yes Soft to palpation RECTAL EXAM: deferred Extremity: COMMON NORMALS: normal to inspection, full ROM and capillary refill normal Neuro: COMMON NORMALS: patient oriented x3, CN's II-XII intact bilaterally, moves all extremities, no focal motor deficits and no sensory deficits noted SENSORIUM/ORIENTATION: Yes oriented to person, Yes oriented to place and Yes oriented to time Skin: COMMON NORMALS: no rashes or lesions noted GENERAL SKIN EXAM: no rashes or lesions noted Course Vital Signs: Vital signs: Vital Signs Pulse Rate 89 10/27/24 17:45 Respiratory Rate 16 10/27/24 14:41 Blood Pressure 163/92 10/27/24 17:45 Pulse Oximetry 95 10/27/24 17:45 Oxygen Delivery Me thod Room Air 10/27/24 14:41 MDM - Headache Medical Decision Making Patient presented for migraine headache, however stated this 1 felt different as during intercourse during orgasm she states that she felt a sudden thunderclap headache that caused her severe pain and has been steadily worsening since onset. Neurologically intact on exam, overall exam unremarkable. She took Imitrex prior to coming which did not help. After migraine cocktail, states that her pain feels quite a bit better and she is ready to go home. Discharge at this time. Blood pressure notably dropped after treating her pain. CT head was normal, this was ordered because of her characteristics and differing from previous migraines. Lab Data Radiology Impressions Head CT 10/27/24 16:07 IMPRESSION: 1. No evidence of intracranial hemorrhage or mass effect. 2. No acute intracranial findings. All radiology interpretation(s) finalized by discharge Discharge Plan Discharge Patient Disposition: Home Clinical Impression: Migraine Qualifiers: Migraine type: unspecified Status migrainosus presence: with status migrainosus Intractability: intractable Qualified Code(s): G43.911 - Migraine, unspecified, intractable, with status migrainosus Condition: Stable Prescriptions: No Action hydrocodone-acetaminophen 7.5-325 mg tablet 1 tab PO Q8H PRN (Reason: Pain) sumatriptan succinate 50 mg tablet 50 mg PO PRN PRN (Reason: Migraine Headache) tramadol 50 mg tablet 50 mg PO Q8H PRN (Reason: pain) Qty: 14 0RF Discharge Orders: Discharge ED (Routine); Ordered 10/27/24 Ordered By: Tremayne Key Referrals: Armani Aguila MD [Primary Care Provider, [facility]] Patient Instructions: Patient Portal & [facility] Instructions Activity Restrictions/Additional Instructions: ED migraine discharge Your emergency visit today was for a migraine headache. You received a migraine ?cocktail,? which usually includes medications to treat pain and nausea. Many people improve within a few hours. The plan below explains what to do at home, how to use medicines safely, and when to seek help. These instructions follow current medical guidance for migraine care. What to do if headache returns - Treat early. Medicines work best when taken as soon as the headache starts or while it is still mild. - First step (choose one based on what has worked before and medical advice): - Acetaminophen (Tylenol): 1,000 mg at onset. Do not exceed 3,000 mg in 24 hours (or 4,000 mg if specifically instructed by a clinician and if liver is healthy). - NSAID (examples): Ibuprofen 400?800 mg, or naproxen 500?550 mg at onset. Take with food and water. Avoid if there is a history of stomach ulcers/bleeding, kidney disease, certain heart conditions, or if on blood thinners?use only if previously advised it is safe. - If symptoms are moderate to severe, or if the first step is not enough: - Triptan (examples: sumatriptan, rizatriptan, eletriptan) as previously prescribed. Use at onset of headache; a second dose may be taken if the headache returns or is not relieved after 2 hours (do not exceed the maximum daily dose on the prescription label). Avoid triptans if there is a history of heart attack, stroke, peripheral artery disease, or uncontrolled multiple cardiovascular risk factors. - Combination therapy can be more effective: taking a triptan together with an NSAID (for example, sumatriptan plus naproxen) lowers the chance the headache comes back and reduces the need for extra ?rescue? medicine. - If nausea is prominent: - Use the prescribed anti-nausea medicine (for example, metoclopramide or prochlorperazine) as directed. Treating nausea can help the headache treatment work better. Medicines that were given today and why - Anti-nausea medicine by IV or injection (such as metoclopramide or prochlorperazine) is effective for acute migraine in the emergency department. - Pain relievers (such as ketorolac) and/or a triptan may have been used to reduce pain. - A dose of dexamethasone may have been given to lower the chance of the headache returning in the next day or two. What to avoid - Do not use opioids (for example, oxycodone, hydromorphone) for migraine unless told by a headache specialist after other options fail. Opioids are linked to worse outcomes and more side effects in migraine. - Limit acute medicines to prevent ?medication overuse headache?: - NSAIDs or acetaminophen: try to keep use to fewer than 15 days per month. - Triptans: try to keep use to fewer than 10 days per month. If headaches are frequent or medicines are needed more often than this, ask about starting a preventive treatment. If prescribed a triptan, important safety notes - Do not use if there is known coronary artery disease, stroke or TIA, peripheral artery disease, or uncontrolled/multiple cardiovascular risk factors. - If chest pain, shortness of breath, severe dizziness, or new neurologic symptoms occur after taking a dose, seek emergency care. If triptans cannot be used or did not help - Other options that may be discussed at follow-up include gepants (such as ubrogepant or rimegepant) or lasmiditan. These do not constrict blood vessels and may be considered when triptans are not appropriate; some have higher cost or may cause drowsiness (especially lasmiditan). General recovery tips - Hydrate, eat regular meals, and rest in a dark, quiet room. - Try to sleep on a regular schedule and manage stress (for example, relaxation or mindfulness techniques). Regular aerobic exercise can help reduce migraine frequency over time. - Track headaches and medicines in a diary to identify triggers (such as skipped meals, dehydration, certain foods, lack of sleep) and to share at follow-up. When to seek urgent care - ?Worst headache ever,? sudden severe headache (?thunderclap?). - New weakness, numbness, trouble speaking, fainting, confusion, fever, stiff neck, head injury, or a different kind of headache than usual. - Persistent vomiting and inability to keep down fluids or medicines. Follow-up plan - Schedule a primary care or neurology follow-up within 1?2 weeks to review how the plan worked, adjust medicines if needed, and discuss prevention if headaches are frequent or disabling. - Bring the headache diary to the visit. Summary of a home plan (example) - At first sign of migraine: - Take naproxen 500?550 mg or ibuprofen 600?800 mg OR acetaminophen 1,000 mg (based on prior guidance). - If moderate/severe or not improving within 1?2 hours, take the prescribed triptan per label. Consider combining the triptan with the NSAID as directed for better sustained relief. - Use anti-nausea medicine if needed. - Do not exceed labeled maximum daily doses. Keep total monthly use within the limits above to avoid medication overuse headache. These instructions are based on medical literature showing that NSAIDs, acetaminophen, and triptans are effective for acute migraine; that combining a triptan with an NSAID improves sustained relief; that antiemetics and dexamethasone are effective in the emergency department; and that opioids should be avoided. 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
[2024-10-27 17:45] VITALS: BP 163/92; PULSE 89; O2SAT 95
== END 2024-10-27 17:57 | disposition home or self-care (01) ==
PROVIDERS: Emergency Provider Physician Assistant; PCP Family Medicine
DX: G43.911 Migraine, unspecified, intractable, with status migrainosus (principal); Z79.899 Other long term (current) drug therapy; Z88.5 Allergy status to narcotic agent; Z88.8 Allergy status to other drugs, medicaments and biological substances; F17.210 Nicotine dependence, cigarettes, uncomplicated
CPT/HCPCS: 70450; 96361; 96374; 96375; 99285; J1100; J1200; J1885; J2765; J7030; J9999

== ENCOUNTER 2024-11-16 17:59 | Emergency (ER) | payer OTHER, SELFPAY ==
--- NOTE | 2024-11-16 18:02 | ECG_ITS ---
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 Measurements Intervals [place] Rate: 77 P: 33 MS: 194 QRS: 10 QRSD: 111 T: 46 QT: 380 QTc: 431 Interpretive Statements SINUS RHYTHM LOW QRS VOLTAGE IN PRECORDIAL LEADS [QRS DEFLECTION < 1.0 mV IN CHEST LEADS] INTRAVENTRICULAR CONDUCTION DELAY [110+ ms QRS DURATION] No previous ECG available for comparison Electronically Signed On 11-17-2024 22:10:30 CDT by Ash Cornelius M.D. [email or web address] [id number]
[2024-11-16 18:06] VITALS: BP 146/97; PULSE 89; RESP 19; TEMP 36.9; O2SAT 96; BMI 48.9
--- NOTE | 2024-11-16 18:41 | XRR_ITS ---
PROCEDURE INFORMATION: Exam: XR Chest Exam date and time: 11/16/2024 6:50 PM Age: 44 years old Clinical indication: Pain; Chest pressure; Additional info: Chest pain TECHNIQUE: Imaging protocol: Radiologic exam of the chest. Views: 1 view. COMPARISON: CT abdomen pelvis w con* [id number] 07/24/2024 4:35 PM FINDINGS: Lungs: Unremarkable. No consolidation. Pleural spaces: Unremarkable. No pleural effusion. No pneumothorax. Heart/Mediastinum: Unremarkable. No cardiomegaly. Bones/joints: Unremarkable. XR/XR chest 1V portable [id number] IMPRESSION: No acute findings.
--- NOTE | 2024-11-16 18:41 | ECG_ITS ---
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 Measurements Intervals [place] Rate: 72 P: 37 NE: 191 QRS: 18 QRSD: 119 T: 40 QT: 405 QTc: 446 Interpretive Statements SINUS RHYTHM LOW QRS VOLTAGE IN PRECORDIAL LEADS [QRS DEFLECTION < 1.0 mV IN CHEST LEADS] POSSIBLE LATERAL MYOCARDIAL INFARCTION , OF INDETERMINATE AGE [30 ms Q WAVE IN I/aVL/V5/V6] Compared to ECG 11/16/2024 18:04:54 NO CHANGE Electronically Signed On 11-17-2024 22:09:43 CDT by Ash Cornelius M.D. [id number]
--- NOTE | 2024-11-16 18:47 | ED_ITS ---
HPI - Chest Pain 2 General: Chief Complaint: Chest Pain Stated Complaint: heart issues sob left arm numb chest pain Time Seen by Provider: 11/16/24 18:30 History of Present Illness: Patient is a 44-year-old female who presents to the emergency department with acute onset of chest pain, heart palpitations, and left arm numbness. She reports that while driving home, she began experiencing heart palpitations. Upon arriving home, she felt unusually fatigued after collecting items from her car. After walking approximately 10-15 feet to her front door, she experienced significant fatigue requiring her to sit down. While seated, she developed left arm numbness and tingling along with chest pressure and pain that radiated from the center of her chest outward. The chest pain has largely resolved at the time of examination. Of note, the patient was recently started on antihypertensive medication less than 10 days ago for newly diagnosed hypertension. She reports her blood pressure was previously well-controlled at 120/80 mmHg but has worsened over the past six months. Related Data Home Medications ?Medication ?Instructions ?Recorded ?Confirmed hydrocodone 7.5 mg-acetaminophen 1 tab PO Q8H PRN Pain 04/26/19 07/24/24 325 mg tablet sumatriptan succinate 50 mg tablet 50 mg PO PRN PRN Mi graine Headache 07/24/24 07/24/24 Previous Rx's ?Medication ?Instructions ?Recorded tramadol 50 mg tablet 50 mg PO Q8H PRN pain #14 ta bs 07/24/24 Allergies Allergy/AdvReac Type Severity Reaction Status Date / Time codeine Allergy Unknown hives Verified 07/24/24 14:57 levothyroxine Allergy Unknown tingling Verified 07/24/24 14:57 feeling promethazine Allergy Unknown Unknown Verified 07/24/24 14:57 topiramate (From Topamax) Allergy Unknown chest pain Verified 07/24/24 14:57 PFSH ED 2 PFSH: Medical History Nicotine dependence, cigarettes, uncomplicated Generalized anxiety disorder Bipolar II disorder Mixed episodes Social History Smoking and tobacco/nicotine status: current every day tobacco/nicotine user cigarettes Packs smoked per day: 1 Physical Exam 2 Const: COMMON NORMALS: no acute distress GENERAL APPEARANCE: cooperative; not ill appearing and not frail appearing HENMT: COMMON NORMALS: normocephalic, atraumatic and Normal external nose present HEAD & SCALP: normocephalic and atraumatic FACE & SINUS: normal facial exam and face symmetric NOSE: Normal external nose present Eye: COMMON NORMALS: Equal, round and reactive pupils present and EOMs intact bilaterally PUPIL: Yes Equal, round and reactive pupils present Neck/C-Spine: GENERAL: Yes trachea midline Chest: CHEST: Yes Symmetrical chest wall rise Resp: COMMON NORMALS: normal respiratory effort, No retractions, No use of accessory muscles and clear to auscultation bilaterally AUSCULTATION: clear to auscultation bilaterally Cardio: COMMON NORMALS: regular rate and regular rhythm RATE: regular rate RHYTHM: regular rhythm GI: COMMON NORMALS: Normal to inspection, nondistended, normoactive bowel sounds present Extremity: COMMON NORMALS: no pedal edema Neuro: BRITNEY COMA SCALE: document GCS findings Britney coma scale eye opening: Spontaneous Iola coma scale verbal response: Orientated Iola coma scale motor response: Obey commands Iola coma scale total score: 15 S ENSORY EXAM: Yes extremities (intact) Psych: COMMON NORMALS: speech normal SPEECH: Yes normal speech Skin: COMMON NORMALS: no rashes or lesions noted GENERAL SKIN EXAM: no rashes or lesions noted Course 2 Vital Signs: Vital signs: Vital Signs Temperature 98.4 F 11/16/24 18:06 Pulse Rate 78 11/16/24 22:28 Respiratory Rate 18 11/16/24 22:28 Blood Pressure 146/72 11/16/24 22:28 Pulse Oximetry 98 11/16/24 22:28 Oxygen Delivery Me thod Room Air 11/16/24 18:51 MDM - Chest Pain Medical Decision Making Patient initially hypertensive, has improved to some degree. Symptoms are resolved. EKG shows a sinus rhythm, left axis. Minimal IV conduction delay. Rate is 75. No acute ST wave changes. CBC and BMP are normal. Chest x-ray is nonacute. Troponins are nondetectable x 2 at 2 hours. TSH minimally elevated at 8.6. With resolution of her symptoms, she will be allowed discharge home. Outpatient follow-up, return for return of symptoms. Lab Data 11/16/24 18:30 11/16/24 18:30 Radiology Impressions Chest X-Ray 11/16/24 18:41 IMPRESSION: No acute findings. Laboratory Results WBC 8.86 10^3/uL (3.29-11.43) 11/16/24 18: RBC 4.50 10^6/uL (3.85-5.65) 11/16/24 18:30 Hgb 13.00 g/dL (11.27-16.99) 11/16/24 18:30 Hct 38.5 % (36-47) 11/16/24 18: MCV 85.6 fl (85-98) 11/16/24 18:30 MCH 28.9 pg (27-33) 11/16/24 18: MCHC 33.8 g/dL (30-55) 11/16/24 18: RDW 14.2 % (12.1-15.1) 11/16/24 18: Plt Count 226 10^3/cmm (157-399) 11/16/24 18: MPV 11.2 fL (7.4-10.4) H 11/16/24 18:30 Neut % (Auto) 37.8 % 11/16/24 18:30 Lymph % (Auto) 52.7 % 11/16/24 18:30 [place] % (Auto) 6.8 % 11/16/24 18:30 Eos % (Auto) 1.9 % 11/16/24 18:30 Baso % (Auto) 0.6 % 11/16/24 18:30 Neut # (Auto) 3.35 10^3/uL (1.8-7.7) 11/16/24 18:30 Lymph # (Auto) 4.7 10^3/uL (0.8-4.8) 11/16/24 18:30 [place] # (Auto) 0.6 10^3/uL (0.2-0.9) 11/16/24 18:30 Eos # (Auto) 0.2 10^3/uL (0.0-0.8) 11/16/24 18:30 Baso # (Auto) 0.1 10^3/uL (0.0-0.1) 11/16/24 18:30 Nucleated RBC % (auto) 0 % 11/16/24 18:30 Nucleated RBCs # 0.0 /100WBC 11/16/24 18:30 Sodium 142 mmol/L (136-145) 11/16/24 18:30 Potassium 3.5 mmol/L (3.5-5.1) 11/16/24 18: Chloride 105 mmol/L (98-107) 11/16/24 18:30 Carbon Dioxide 24 mmol/L (22-29) 11/16/24 18:30 Anion Gap 16.5 (5-19) 11/16/24 18:30 BUN 13 mg/dL (6-20) 11/16/24 18:30 Creatinine 0.6 mg/dL (0.5-0.9) 11/16/24 18:30 GFR Calculation 109.6 mL/min (90-130) 11/16/24 18: Glucose 102 mg/dL (65-115) 11/16/24 18: Calculated Osmolality 294 mOsm/kg (285-295) 11/16/24 18: Calcium 9.3 mg/dL (8.5-10.5) 11/16/24 18: Total Bilirubin 0.3 mg/dL (0.15-1.2) 11/16/24 18:30 AST 22 U/L (0-32) 11/16/24 18:30 ALT 28 U/L (0-33) 11/16/24 18:30 Alkaline Phosphatase 76 U/L (35-105) 11/16/24 18:30 Troponin T Baseline < 6 ng/L (0-10) 11/16/24 18:30 Troponin T 120 Minute < 6.0 ng/L (0-10) 11/16/24 20:46 Delta Troponin T 0 ABS# (0-10) 11/16/24 20:46 NT-Pro-B Natriuret Pep < 36 pg/mL (0-125) 11/16/24 18:30 Total Protein 7.3 g/dL (6.6-8.7) 11/16/24 18: Albumin 4.2 g/dL (3.5-5.2) 11/16/24 18: Globulin 3.1 g/dL (1.3-4.6) 11/16/24 18: TSH 8.64 uIU/mL (0.27-4.20) H 11/16/24 18:30 HCG, Qual Negative (Negative) 11/16/24 18:30 All radiology interpretation(s) finalized by discharge Discharge Plan Discharge Patient Disposition: Home Clinical Impression: Chest pain Condition: Stable Prescriptions: No Action hydrocodone-acetaminophen 7.5-325 mg tablet 1 tab PO Q8H PRN (Reason: Pain) sumatriptan succinate 50 mg tablet 50 mg PO PRN PRN (Reason: Migraine Headache) tramadol 50 mg tablet 50 mg PO Q8H PRN (Reason: pain) Qty: 14 0RF Discharge Orders: Discharge ED (Routine); Ordered 11/16/24 Ordered By: Raffi Perry Referrals: Armani Aguila MD [Primary Care Provider, Family Practice] - 1-3 days Patient Instructions: Chest Pain (ED), Opioid Safety, Pain Management, Patient Portal & [facility] Instructions Activity Restrictions/Additional Instructions: Return for repeated episodes of chest pain, shortness of breath, fever, cough, other concerning symptoms. Follow-up with your doctor next week. Call Monday or Monday for an appointment. Print Language: Faroese Coding Level of Care Code ED Radiation / Chemistry Technician for Conchis Bell
[2024-11-16 18:51] VITALS: BP 154/92; PULSE 78; RESP 17; O2SAT 95
[2024-11-16 18:53] LABS: Hematocrit 38.5 % (36-47); Hemoglobin 13.00 g/dL (11.27-16.99); Mean Corpuscular HGB Conc 33.8 g/dL (30-55); Mean Corpuscular Hemoglobin 28.9 pg (27-33); Mean Corpuscular Volume 85.6 fl (85-98); Nucleated Red Blood Cells % 0 %; Platelet Count 226 10^3/cmm (157-399); Red Blood Count 4.50 10^6/uL (3.85-5.65); White Blood Count 8.86 10^3/uL (3.29-11.43)
[2024-11-16 19:18] LABS: HCG, Serum Qual Negative (Negative)
[2024-11-16 19:36] LABS: Troponin(5th) Baseline < 6 ng/L (0-10)
[2024-11-16 19:45] LABS: Alanine Aminotransferase 28 U/L (0-33); Albumin Level 4.2 g/dL (3.5-5.2); Alkaline Phosphatase 76 U/L (35-105); Anion Gap 16.5 (5-19); Aspartate Amino Transferase 22 U/L (0-32); Blood Urea Nitrogen 13 mg/dL (6-20); Calcium 9.3 mg/dL (8.5-10.5); Carbon Dioxide 24 mmol/L (22-29); Chloride 105 mmol/L (98-107); Creatinine Clr Calc Pharmacy 162.9934; Globulin 3.1 g/dL (1.3-4.6); Glucose 102 mg/dL (65-115); NT Pro B Type Natriuretic Pept < 36 pg/mL (0-125); Osmolality Calculated 294 mOsm/kg (285-295); Potassium 3.5 mmol/L (3.5-5.1); Sodium 142 mmol/L (136-145); Total Protein 7.3 g/dL (6.6-8.7)
[2024-11-16 20:09] LABS: Thyroid Stimulating Hormone 8.64 uIU/mL (0.27-4.20)
--- NOTE | 2024-11-16 21:21 | ECG_ITS ---
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 Measurements Intervals [place] Rate: 67 P: 55 NH: 192 QRS: 20 QRSD: 106 T: 40 QT: 432 QTc: 456 Interpretive Statements SINUS RHYTHM LOW QRS VOLTAGE IN PRECORDIAL LEADS [QRS DEFLECTION < 1.0 mV IN CHEST LEADS] POSSIBLE LATERAL MYOCARDIAL INFARCTION , PROBABLY OLD [30 ms Q WAVE IN I/aVL/V5/V6] Compared to ECG 11/16/2024 18:48:23 No significant changes Electronically Signed On 11-18-2024 13:52:41 CDT by Ash Cornelius M.D. [id number] [id number]
[2024-11-16 21:29] LABS: Troponin 5 2HR < 6.0 ng/L (0-10); Troponin 5 2HR Delta 0 ABS# (0-10)
[2024-11-16 22:28] VITALS: BP 146/72; PULSE 78; RESP 18; O2SAT 98
== END 2024-11-16 22:29 | disposition home or self-care (01) ==
PROVIDERS: Emergency Provider Emergency Medicine; PCP Family Medicine
DX: R07.9 Chest pain, unspecified (principal); F17.210 Nicotine dependence, cigarettes, uncomplicated
CPT/HCPCS: 36415; 71045; 80053; 83880; 84443; 84484; 84703; 85025; 93005; 99285

== ENCOUNTER 2025-01-14 09:11 | Outpatient (CLI) | payer OTHER, SELFPAY ==
--- NOTE | 2025-01-14 | ECG_ITS ---
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 Interpretive Statements Procedure: A total of 0.4 mg of Lexiscan was infused over 20 seconds. The stress phase was continued for a total of 5 minutes. Sestamibi was injected 20 seconds after the Lexiscan infusion. Findings:The patient's resting blood pressure was 163/105 with a heart rate of 79 bpm. The resting EKG showed normal sinus rhythm and no ST or T wave abnormalities. There were no ST or T wave changes during the stress test. The heart rate gradually increased to 101 bpm after Lexiscan infusion. Lowest blood pressure after infusion was 595925 over 111 mmHg. At the end of recovery the patient's blood pressure was 143/96 mmHg with a heart rate of 87 bpm. Conclusion: 1. Normal EKG response to Lexiscan infusion 2. No Lexiscan induced chest pain or cardiac arrhythmia. 3. Normal blood pressure and heart rate response. 4. Nuclear myocardial perfusion scan pending; see separate report. Electronically Signed On 01-14-2025 18:33:26 CDT by Ash Cornelius M.D. [id number] [id number]
[2025-01-14 09:46] VITALS: BMI 48.5
--- NOTE | 2025-01-14 09:50 | NMCV_ITS ---
NM bartolome perf SPECT r/s* [id number] Bere Quiros Age: 44 Gender: F : 1980 Exam Date: 01/14/2025 10:44 Ordering Phys: Armani Aguila MD Technologist: CHARLENE Arceo Exam Location: [facility] Indications: cp STRESS TEST Please see separate stress test report in [facility] for full findings IMAGE PROTOCOL Rest/Stress 1 Lexiscan Day Radiopharmaceutical Dose (mCi) Administration Site Administered by Rest: Tc-99m 10.4 IV Emely Nelson, ASSISTANT BASEBALL COACH Sestamibi Stress:Tc-99m 32.3 IV Emely Mclaughlingle, ASSISTANT BASEBALL COACH Sestamibi Rest: 14-Jan-2025 60 Discovery 630 Stress: 14-Jan-2025 30 Discovery 630 0.4mg Lexiscan. Images obtained in supine and prone position. SPECT RESULTS Technical Quality: Good Raw Data Analysis: Normal Image Corrections: No attenuation or motion correction applied Summed Stress Score: 2 Summed Rest Score: 1 Summed Difference Score: 1 PERFUSION FINDINGS SPECT images demonstrate homogeneous tracer distribution throughout the myocardium. FUNCTIONAL RESULTS (calculated via Gated SPECT) Stress Image LV EF (%): 74 Stress EDV (mL):106 TID: 1 Stress ESV (mL):28 FUNCTIONAL FINDINGS: There is normal left ventricular systolic function. IMPRESSIONS Myocardial perfusion imaging is normal. There is normal left ventricular systolic function, EF 74%. Ash Cornelius MD, FACC (Electronically Signed) Final Date: 14 January 2025 18:08 S
[2025-01-14 11:40] VITALS: BP 143/96; PULSE 85
== END 2025-01-14 09:12 | disposition home or self-care (01) ==
LOC: CDL 09:12
PROVIDERS: PCP Family Medicine; Visit Provider Family Medicine
DX: R07.9 Chest pain, unspecified (principal)
CPT/HCPCS: 36415; 78452; 93017; 96374; A9500; J2785

== ENCOUNTER 2025-03-14 14:36 | Emergency (ER) | payer OTHER, SELFPAY ==
--- NOTE | 2025-03-14 14:40 | XRR_ITS ---
PROCEDURE INFORMATION: Exam: XR Chest Exam date and time: 03/14/2025 3:09 PM Age: 45 years old Clinical indication: Pain; Angina pectoris; Additional info: Cp TECHNIQUE: Imaging protocol: Radiologic exam of the chest. Views: 1 view. COMPARISON: CR XR chest 1V portable [id number] 11/16/2024 6:50 PM FINDINGS: Lungs: Unremarkable. No consolidation. Pleural spaces: Unremarkable. No pleural effusion. No pneumothorax. Heart/Mediastinum: Slight prominence to the right heart border may represent a prominent fat pad. Bones/joints: Unremarkable. XR/XR chest 1V portable [id number] IMPRESSION: No acute findings.
--- NOTE | 2025-03-14 14:40 | ECG_ITS ---
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1980 Requested By: Jennifer Mann Order Number: [id number] Raymond MD: PAO JAFFE Measurements Intervals [place] Rate: 76 P: 46 HI: 173 QRS: 10 QRSD: 100 T: 32 QT: 356 QTc: 402 Interpretive Statements SINUS RHYTHM MINIMAL VOLTAGE CRITERIA FOR LVH, CONSIDER NORMAL VARIANT [MEETS CRITERIA IN ONE OF: R(aVL), S(V1), R(V5), R(V5/V6)+S(V1)] Compared to ECG 11/16/2024 21:21:17 Myocardial infarct finding no longer present Electronically Signed On 03-16-2025 23:04:17 TELEVISION MAINTENANCE WORKER by PAO JAFFE [id number]
--- OUTSIDE RECORDS SUMMARY | 2025-03-14 14:41 | XMS_ITS | Continuity of Care Document ---
Author Organization [facility] Karson Camacho [facility] Jorge Alberto Colbert, [facility] ([facility]) Address [address] [place] [address] Care Team Providers Care Real Estate Specialist Name Role Phone ARMANI PERKINS Primary Care Provider [phone] Assessment Encounter Date Assessment Date Assessment LastModified by Organization Details LastModified Time 01/03/2025 01/03/2025 she understand she is overdue for her pap smear. [email or web address] Not available 01/03/2025 12:02:58 Plan of Treatment Reminders Order Date Submit Date Provider Last Modified By Organization Details Last Modified Time Details Appointments OFFICE VISIT GREGORIO 2025 10:00A M Armani Perkins MD Not available Not available Not available Lab None recorded. Referral None recorded. Procedures None recorded. Surgeries None recorded. Imaging None recorded. Medication Orders losartan 50 mg-hydroc hlorothia zide 12.5 mg tablet 2024 025 [facility] [place], [address] [place] [address], [address], 03/07/2025 15:55:08 Patient TargetsNo targets recorded. Patient InstructionsNo instructions recorded. Reason for Referral None Reported. Results Created Date Observation Date Name Description Value Unit Range Abnormal Flag Note LastModifiedBy Organization Detail LastModifiedTime 12/07/1912/05/2024 MR, angio gram, head + neck, w/ contr ast No observ ation record ed. [facility] [address], [place], [address], 12/09/2024 15:25:42 12/07/19 25 12/05/2024 MR, angio gram, head + neck, w/ contr ast No observ ation record ed. [facility] [address] [place], [address], 12/09/2024 15:25:29 01/15/20 25 01/14/2025 gregg can cardi olite stres s test (PROC ) No observ ation record ed. [facility] [address] [place], [address], 01/15/2025 16:20:49 01/15/2001/14/2025 gregg can cardi olite stres s test (PROC ) No observ ation record ed. [facility] [address] [place], [address], 01/15/2025 16:21:03 Result Notes None recorded. Problems Name Problem SNOMED Code Status Onset Date Resolution Date Notes Provider Name and Address Organization Details Recorded Time Chronic back pain 307153278 Active 2022 ANOOP brown [facility] 4 11:19:44 Lumbar radiculopathy 093529634 Active 2022 ANOOP brown [facility] 4 11:19:49 Cervical radiculopathy 00294399 Active 2022 ANOOP brown [facility] 4 11:19:37 Migraine 66280945 Active 2022 ANOOP brown [facility] 3 12:16:57 Problem Notes None recorded. Procedures Surgical History Date Name Laterality Status Provider Name and Address Organization Details Recorded Time total hysterectomy with right salpingo-oophorecto my completed Armani Perkins MD [address] [place] [address], [phone], [facility], LArtCChelle 01/03/2025 12:02:18 hysterectomy completed Armani Perkins MD [address] [place] [address], [phone], [facility], AntoninoCChelle 01/03/2025 12:01:49 cholecystectomy completed [facility], Jorge Alberto 11/17/2022 12:16:12 Carpal tunnel surgery completed [facility], AntoninoCChelle 11/17/2022 12:16:24 decompression of ulnar nerve completed [facility], Jorge Alberto 11/17/2022 12:16:33 section completed [facility], Jorge Alberto 11/17/2022 12:16:44 Imaging Results None recorded. Procedure Notes None recorded. Medical Equipment None Reported. Allergies Allergen ID Allergen Name Allergen Category Reaction Reaction Severity Criticality Documentation Date Start Date Code Code System Note Provider Name and Address Organization Details Recorded Time 34939 codeine medicatio n Not available Not available Not available 10/15/2022 2670 [facility] 4 12:03:42 60485 Claritin- D medicatio n Not available Not available Not available 10/15/2022 ANOOP COSME [facility], Jorge Alberto 4 12:03:34 03836 Phenergan medicatio n Not available Not available Not available 10/02/2024 65333 8 RxNorm [facility]to 5 12:04:09 66192 levothyro xine sodium medicatio n Not available Not available Not available 02/27/20252014 36877 RxNorm face was numb Not Available manny - [employer] - prod 5 10:06:52 10866 topiramat e medicatio n Not available Not available Not available 02/27/20252014 43164 RxNorm tingl ing Not Available manny - External Data [employer] - prod 5 10:06:52 33921 tramadol medicatio n hives Not available [facility] 02/27/20252014 16119 RxNorm Not Available manny - External Data Service - prod 5 10:06:52 54345 promethaz ine medicatio n Not available Not available Not available 02/27/20252009 8745 RxNorm Not Available manny - External Data [employer] - prod 5 10:07:06 Medications Name Sig Start Date Stop Date Status Note LastModified by Organization Details LastModified Time venlafaxi ne ER 37.5 mg capsule,e xtended release 24 hr TAKE ONE CAPSULE BY MOUTH EVERY DAY for SEVEN DAYS 12/26 completed Not Available Not Available Not Available venlafaxi ne ER 75 mg capsule,e xtended release 24 hr Take 1 capsule every day by oral route for 30 days. 12/26 completed Not Available Not Available Not Available lisinopri l 20 mg-hydroc hlorothia zide 12.5 mg tablet TAKE ONE TABLET BY MOUTH EVERY DAY 01/03 completed Not Available Not Available Not Available tizanidin e 4 mg tablet Take 1 tablet every 8 hours by oral route for 5 days, for prn muscle spasms do not take if you need to be alert or are doing dangerou s activiti es such as driving. 2024 active Not Available Not Available Not Avai lable metoprolo l succinate ER 50 mg tablet,ex tended release 24 hr TAKE ONE TABLET BY MOUTH EVERY DAY 12/09 completed Not Available Not Available Not Available ondansetr on HCl 8 mg tablet TAKE ONE TABLET BY MOUTH TWICE DAILY 2024 active Not Available Not Available Not Avai lable prednison e 20 mg tablet Take 2 tablets every day by oral route for 5 days. 2024 active Not Available Not Available Not Avai lable sumatript an 50 mg tablet TAKE ONE TABLET BY MOUTH AT THE ONSET of HEADACHE . MAY take another TABLET in TWO hours. UP TO TWO TABLETS in 24 hours active Not Available Not Available No t Available Zyrtec 10 mg tablet Take 1 tablet every day by oral route. active Not Available Not Available No t Available omeprazol e 40 mg capsule,d elayed release Take 1 capsule every day by oral route for 90 days. 2023 active Not Available Not Available Not Avai lable aspirin 81 mg tablet,de layed release TAKE ONE TABLET BY MOUTH EVERY DAY 01/17 completed Not Available Not Available Not Available tramadol 50 mg tablet TAKE 1 TABLET BY MOUTH EVERY 8 HOURS NEEDED FOR PAIN 11/08 completed Not Available Not Available Not Available betametha sone acetate and sodium phos 6 mg/mL suspensio n for injection Take 6 mL by injectio n route for 1 day. 04/05 completed Not Available Not Available Not Available hydrocodo ne 7.5 mg-acetam inophen 325 mg tablet TAKE ONE TABLET BY MOUTH EVERY 8 HOURS NEEDED 2024 active Not Available Not Available Not Avai lable betametha sone dipropion ate 0.05 % topical cream two times daily 10/25 completed Recorded 04/21/19 11:33AM by Armani Perkins MD, Office Visit; Refill Quantity : 1; Applicat or; Not Available Not Available Not Available metoprolo l succinate ER 25 mg tablet,ex tended release 24 hr TAKE ONE TABLET BY MOUTH EVERY DAY 2024 active Not Available Not Available Not Avai lable methylpre dnisolone 4 mg tablets in a dose pack TAKE BY MOUTH DIRECTED ON packagin g 04/05 completed Not Available Not Available Not Available losartan 50 mg-hydroc hlorothia zide 12.5 mg tablet TAKE ONE TABLET BY MOUTH EVERY DAY active Not Available Not Available No t Available ketorolac 60 mg/2 mL intramusc ular solution Inject 2 mL every day by intramus cular route for 1 day. 04/05 completed Not Available Not Available Not Available ibuprofen 1,000 mg bid active Not Available Not Available No t Available sumatript an succinate take at the onset of headache 05/15 completed Recorded 04/21/19 23 11:15AM by Anoop Cosme LPN, Office Visit; Refill Quantity : 10; Tablet; Not Available Not Available Not Available Prilosec two times daily 10/25 completed Recorded 06/15/19 10:19AM by Tonja Espinoza LPN, Office Visit; Refill Quantity : 0; Not Available Not Available Not Available Hydrocodo ne W/Acetami nophen three times daily prn 10/25 completed hold until 30 days from previous fill date; Recorded 05/24/19 2:14PM by Armani Perkins MD, Refill Request; Refill Quantity : 0; Not Available Not Available Not Available ProAir HFA 90 mcg/actua tion aerosol inhaler every four hours, as needed 10/25 completed VO AT/MA; Recorded 01/15/20 10:58AM by Anoop Cosme LPN, Office Visit; Refill Quantity : 0; Not Available Not Available Not Available Zyrtec 10 mg capsule as needed 10/25 completed 0; Recorded 04/21/19 11:15AM by Anoop Cosme LPN, Office Visit; Not Available Not Available Not Available Vitals Date Recorded Body height Body mass index (BMI) Body weight Body temperature Heart rate Oxygen saturation Systolic And Diastolic Provider Name and Address Organization Details Last Updated DateTime 162.56 cm 49.4 kg/m2 607848. 6 g 98 [degF] 84 /min 97 % 122/80 mm[Hg] ANOOP COSME [facility] 11:42:55 Social History Question Answer Notes LastModified by Organizat ion Details LastModified Time Tobacco Smoking Status Current Every Day Smoker ANOOP COSME [facility] 11/17/2022 12:15:06 What Was The Date Of Your Most Recent Tobacco Screening? 03/11/2025 [email or web address] Information not available 03/11/2025 At What Age Did You Start Smoking Tobacco? 16 [email or web address] Information not available 11/17/2022 How Much Tobacco Do You Smoke? 1 PPD [email or web address] Information not available 11/17/2022 Sex: Unknown Functional Status Question Answer Note LastModified by Organization D etails LastModified Time Do you or have you ever used any other forms of tobacco or nicotine? No [email or web address] Information not available 11/17/2022 What is your level of alcohol consumption? None [email or web address] Information not available 11/17/2022 Do you or have you ever used any nicotine-free cigarettes, vape, or chewing tobacco? No Information not available 11/08/2024 Mental Status None recorded. Family History Relationship Description Onset Age of this Age Resolved Age Notes LastModified by Organization Details LastModified Time Paternal Grandmother Malignant neoplasm of colon [email or web address] Not available 11/17 12:13:18 Paternal Grandfather Carcinoma of prostate Not available 11/17 12:13:25 Paternal Grandfather Diabetes mellitus [email or web address] Not available 11/17 12:14:23 Unspecified Relation Crohn's disease cousin [email or web address] Not available 11/17 12:13:44 Mother Diabetes mellitus [email or web address] Not available 11/17 12:14:23 Maternal Uncle Diabetes mellitus [email or web address] Not available 11/17 12:14:23 Maternal Aunt Diabetes mellitus [email or web address] Not available 11/17 12:14:23 Medical History No medical history recorded. Gynecological HistoryNo gynecological history recorded. Obstetrics History GPAL:G 0 P 0 0 0 0 Immunizations Vaccine Type Date Status Note Provider Nam e and Address Organization Details Recorded Time Influenza, split virus, trivalent, preservative 5 completed Not Available [facility] 10/15/2022 02:43:31 Past Encounters Encounter ID Performer Location Encounter Start Date Encounter Closed Date Diagnosis/Indication Diagnosis SNOMED-CT Code Diagnosis ICD10 Code Diagnosis IMO Codes Diagnosis Note [id number] Armani Perkins MD [facility] ([facility]) [address] [place] [id number] 01/03/2025 11:21:31 01/07/2025 10:43:23 Screening for malignant neoplasm of cervix 095941423 Z12.4 635970 she is aware of the risk of not doing a pap smear given hx of abnormal pap smear. will schedule for her at her request. Essential hypertension 60683720 I10 16743 Health Concerns Section Related Observation LastModified by Organization Detai ls LastModified Time None Recorded Concern Status LastModified by Organization Details LastModified Time None Recorded Payers Encounter Date Sequence Insurance Name Policy Number Policy Orellana Covered Member ID Orellana Member ID Guarantor Name 01/03/2025 1 [employer] - [facility] ([facility]) Bere Quiros [id number] Bere Quiros Notes Date Note Type Note Provider Name and Address Organization Details Recorded Time 01/03/2025 text/html Back PainReporte d by PatientHPIFor location, patient reportsradiation to leg rightbut reportslumbar midline. For severity, patient reportspain level 7/10andinterferes with sleep. For associated symptoms, patient reportsnumbness (in the upper left thigh, and the right thigh). For quality, patient reportssharpandtinglin g. For duration, patient reports___ years. For timing, patient reportschronic. For alleviating factors, patient reportsopioids. For aggravating factors, patient reportsflexing back,pushing,pulling,r eaching, andstraining. Hypertension IM/FMReported by PatientHPIFor associated symptoms, patient reportsfatigue. For quality, patient reportshere for check-up. For severity, patient reportsnormal (<120/<80 mmhg). For duration, patient reportshtn noted for ___ months. For onset/timing, patient reportsgradual onset.Patient states that for a little over 1 month now she has had a chronic cough. It feels like there is a constant tickle in her throat. The cough is worse at night when she lays down, but does happen all through the day as well. She has been using a wedge pillow. she is already on tx for GERD. she had to reschedule her stress test due to not being without caffeine that day. it will be in 10 days.ROS as noted in the HPI 3 month f/u Patient thinks that she is going through menopause. 10 years ago she had a hysterectomy and they left one ovary. She is crying all of the time, depressed. Armani Perkins MD [address] [place] [address], [phone], [facility] 01/03/2025 12:10:47 OBGyn Episode No OBEpisode recorded.
--- OUTSIDE RECORDS SUMMARY | 2025-03-14 14:41 | XMS_ITS | Data Portability ---
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 to er if sereve headache or any neurologic sx's as discussed. Not available 11/08/2024 10:56:00 11/25/2024 11/25/2024 continue cutting back on caffeine and smoking she has lost 6 lbs in 2 weeks due to better diet. she is no longer swelling her mri is soon. she will proceed. she has not had headaches but she has not been sexually active. go to er right away if chest discomfort recurs Not available 11/25/2024 11:38:57 01/03/2025 01/03/2025 she understand she is overdue for her pap smear. [email or web address] Not available 01/03/2025 12:02:58 03/11/2025 03/11/2025 Patient here today because she reports she coughed or sneezed hard yesterday and felt something pull in her upper back/ribs. She feels like her back is tight and it is going up to her neck. She denies any numbness or tingling. According to her chart she has taken tizanidine in the past while she has been on the hydrocodone. Advised her no dangerous activities while taking the medication like operating heavy machinery or driving. She has a follow-up appt soon with Dr. Aguila. Not available 03/11/2025 17:06:52 Plan of Treatment Reminders Order Date Submit Date Provider Last Modified By Organization Details Last Modified Time Details Appointments OFFICE VISIT GREGORIO 2025 10:00A M Ava Aguila MD Not available Not available Not available Lab streptoco ccus group A Ag screen 2024 [email or web address] [facility] [address] [place], [address], 03/04/2025 18:20:30 Referral None recorded. Procedures lexiscan cardiolit e stress test (PROC) [facility] [address] [place], [address], 12/18/2024 09:16:45 Surgeries None recorded. Imaging MR, angiogram , head + neck, w/ contrast - SELF PAY 2024 [facility], [address] [place], [address], 11/26/2024 10:48:04 Medication Orders prednison e 20 mg tablet 2024 [facility], [address] [place] [address], [id number], 03/11/2025 16:27:12 tizanidin e 4 mg tablet 2024 [facility], [address] [place] [address], [id number], 03/11/2025 16:27:10 losartan 50 mg-hydroc hlorothia zide 12.5 mg tablet 2024 [facility], [address] [place] [address], [id number], 03/07/2025 15:55:08 aspirin 81 mg tablet,de layed release 2024 025 [facility], [address] [place] [address], [id number], 01/17/2025 12:57:24 metoprolo l succinate ER 50 mg tablet,ex tended release 24 hr 2024 025 [facility], [address] [place] [address], [id number], 12/09/2024 15:09:29 metoprolo l succinate ER 25 mg tablet,ex tended release 24 hr 2024 025 [facility], [address] [place] [address], [id number], 01/31/2025 11:46:14 lisinopri l 20 mg-hydroc hlorothia zide 12.5 mg tablet 2024 [facility], [address] [place] [address], [address], 01/03/2025 12:11:54 Patient TargetsNo targets recorded. Patient Instructions Encounter Date Encounter Id Patient Instructions Last Modified By Organization Details Last Modified Time 03/01/2025 [id number] Discussed products for symptom relief. Follow up for worsening [email or web address] Not available 03/01/2025 15:39:27 03/11/2025 [id number] Call or return for questions or concerns. Not available 03/11/2025 17:05:23 Reason for Referral None Reported. Results Created Date Observation Date Name Description Value Unit Range Abnormal Flag Note LastModifiedBy Organization Detail LastModifiedTime 11/02/1911/01/2024 CBC WBC 8.1 x10 4.0-10 .5 Not Available [facility] [address] [facility] [address], [place], [address], 11/01/2024 08:50:11 11/02/19 25 11/01/2024 CBC RBC 4.39 x10 3.50-5 .50 Not Available [facility] [address], [place], [address], 11/01/2024 08:50:11 11/02/1911/01/2024 CBC HGB 12.8 g/dL 12.0-1 6.0 Not Available [facility] [address] [facility], [place], [address], 11/01/2024 08:50:11 11/02/1911/01/2024 CBC HCT 38.3 % 37.0-4 7.0 Not Available [facility] [address] [facility], [place], [address], 11/01/2024 08:50:11 11/02/1911/01/2024 CBC MCV 87.3 fL 80.0-9 9.9 Not Available [facility] [address] [facility], [place], [address], 11/01/2024 08:50:11 11/02/1911/01/2024 CBC MCH 29.0 pg 27.0-3 2.0 Not Available [facility] [address] [facility], [place], [address], 11/01/2024 08:50:11 11/02/1911/01/2024 CBC MCHC 33.3 g/dL 32.0-3 6.0 Not Available [facility] [address] [facility] [facility] [address], [place], [address], 11/01/2024 08:50:11 11/02/1911/01/2024 CBC RDW 14.7 % 11.5-1 4.5 high Not Available [facility] [address] [facility] [facility], [place], [address], 11/01/2024 08:50:11 11/02/19 25 11/01/2024 CBC plt 214.2 x10 140.0- 451.0 Not Available [facility] [address] [facility], [place], [address], 11/01/2024 08:50:11 11/02/19 25 11/01/2024 CBC lymphocytes % 46.5 % 20.0-5 0.0 Not Available [facility] [address] [facility], [place], [address], 11/01/2024 08:50:11 11/02/19 25 11/01/2024 CBC granulcytes % 42.5 % 30.0-7 0.0 Not Available [facility] [address] [facility], [place], [address], 11/01/2024 08:50:11 11/02/19 25 11/01/2024 CBC monocytes % 7.3 % 2.0-16 .0 Not Available [facility] [address] [place] [address] [facility], [place], [address], 11/01/2024 08:50:11 11/02/19 25 11/01/2024 CBC granulcytes# 3.4 x10 Not Julianne ilable [facility] [address] [place] [address] [facility], [place], [address], 11/01/2024 08:50:11 11/02/19 25 11/01/2024 CBC lymphocytes # 3.8 x10 Not Available [facility] [address] [place] [address] [facility], [place], [address], 11/01/2024 08:50:11 11/02/19 25 11/01/2024 CBC monocytes # 0.6 x10 Not Avai lable [facility] [address] [facility], [place], [address], 11/01/2024 08:50:11 11/02/1911/01/2024 CMP (FEMA LE) glucose 115.0 mg/dL 60.0-9 9.0 high Not Available [facility] [address] [facility], [place], [address], 11/01/2024 09:13:40 11/02/19 25 11/01/2024 CMP (FEMA LE) BUN (blood urea nitrogen) 15.0 mg/dL 10.0-2 6.0 Not Available [facility] [address] [facility], [place], [address], 11/01/2024 09:13:40 11/02/19 25 11/01/2024 CMP (FEMA LE) creatinine (serum) 0.7 mg/dL 0.4-1. 5 Not Available [facility] [address] [facility], [place], [address], 11/01/2024 09:13:40 11/02/19 25 11/01/2024 CMP (FEMA LE) BUN/creatini ne ratio 21.43 ratio Not Available [facility] [address] [facility], [place], [address], 11/01/2024 09:13:40 11/02/19 25 11/01/2024 CMP (FEMA LE) eGFR calculated 97.5 Not Available [facility] [address] [facility] [address] [address], [place], [address], 11/01/2024 09:13:40 11/02/19 25 11/01/2024 CMP (FEMA LE) total protein 6.9 g/dL 6.0-8. 5 Not Available [facility] [address] [facility] [address] [address], [place], [address], 11/01/2024 09:13:40 11/02/19 25 11/01/2024 CMP (FEMA LE) total bilirubin 0.8 mg/dL 0.2-1. 3 Not Available [facility] [address] [facility], [place], [address], 11/01/2024 09:13:40 11/02/19 25 11/01/2024 CMP (FEMA LE) albumin 4.0 g/dL 3.5-5. 5 Not Available [facility] [address] [place] [facility], [place], [address], 11/01/2024 09:13:40 11/02/19 25 11/01/2024 CMP (FEMA LE) globulin 2.9 calc Not Available [facility] [address] [facility] [address], [place], [address], 11/01/2024 09:13:40 11/02/19 25 11/01/2024 CMP (FEMA LE) AST (SGOT) 33.0 U/L 0.0-46 .0 Not Available [facility] [address] [place] [facility], [place], [address], 11/01/2024 09:13:40 11/02/19 25 11/01/2024 CMP (FEMA LE) altv (SGPT) 25.0 U/L 13.0-6 9.0 normal Not Available [facility] [address] [place] [facility], [place], [address], 11/01/2024 09:13:40 11/02/1911/01/2024 CMP (FEMA LE) A/G ratio 1.4 ratio Not Available [facility] [address] [place] [facility], [place], [address], 11/01/2024 09:13:40 11/02/19 25 11/01/2024 CMP (FEMA LE) ALP phos 71.0 U/L 30.0-1 40.0 normal Not Available [facility] [address] [facility], [place], [address], 11/01/2024 09:13:40 11/02/1911/01/2024 CMP (FEMA LE) calcium 8.9 mg/dL 8.4-10 .5 Not Available [facility] [address] [facility], [place], [address], 11/01/2024 09:13:40 11/02/1911/01/2024 CMP (FEMA LE) sodium 141.0 mmol/ L 136.0- 145.0 Not Available [facility] [address] [place] [facility], [place], [address], 11/01/2024 09:13:40 11/02/1911/01/2024 CMP (FEMA LE) potassium 4.1 mmol/ L 3.5-5. 1 Not Available [facility] [address] [place] [facility], [place], [address], 11/01/2024 09:13:40 11/02/1911/01/2024 CMP (FEMA LE) chloride 107.0 mmol/ L 98.0-1 10.0 normal Not Available [facility] [address] [place] [facility], [place], [address], 11/01/2024 09:13:40 11/02/1911/01/2024 CMP (FEMA LE) C02 28.0 mmol/ L 22.0-3 1.0 Not Available [facility] [address] [place] [facility], [place], [address], 11/01/2024 09:13:40 11/02/1911/01/2024 CMP (FEMA LE) anion gap 6.0 calc Not Available [facility] [address] [facility] [address], [place], [address], 11/01/2024 09:13:40 11/02/19 25 11/01/2024 CMP (FEMA LE) osmolality 292.8 calc Not Available [facility] [address] [facility], [place], [address], 11/01/2024 09:13:40 11/02/19 25 11/01/2024 LIPID PROFI LE (FEMA LE) cholesterol 188.0 mg/dL 0.0-20 0.0 Not Available [facility] [address] [facility], [place], [address], 11/01/2024 09:13:42 11/02/19 25 11/01/2024 LIPID PROFI LE (FEMA LE) trig 72.0 mg/dL 0.0-15 0.0 Not Available [facility] [address] [address], [place], [address], 11/01/2024 09:13:42 11/02/19 25 11/01/2024 LIPID PROFI LE (FEMA LE) HDL - direct 50.0 mg/dL >40.0 Not Available [facility] [address] [facility] [address], [place], [address], 11/01/2024 09:13:42 11/02/19 25 11/01/2024 LIPID PROFI LE (FEMA LE) VLDL - direct 14.4 mg/dL Not Available [facility] [address] [address], [place], [address], 11/01/2024 09:13:42 11/02/19 25 11/01/2024 LIPID PROFI LE (FEMA LE) LDL - direct 123.6 mg/dL 0.0-13 0.0 Not Available [facility] [address] [facility] [address], [place], [address], 11/01/2024 09:13:42 03/01/20 25 03/01/2025 strep tococ cus group A Ag scree n Strep negati ve Not Available [facility] [address] [place], [address], 03/01/2025 14:34:44 12/07/19 25 12/05/2024 MR, angio gram, head + neck, w/ contr ast No observ ation record ed. [facility] [address] [place], [address], 12/09/2024 15:25:42 12/07/19 25 12/05/2024 MR, angio gram, head + neck, w/ contr ast No observ ation record ed. [facility] [address] [place], [address], 12/09/2024 15:25:29 01/15/20 25 01/14/2025 gregg can cardi olite stres s test (PROC ) No observ [facility]ion record ed. [facility] [address] [place], [address], 01/15/2025 16:20:49 01/15/2001/14/2025 gregg can cardi olite stres s test (PROC ) No observ ation record ed. [facility] [address] [place], [address], 01/15/2025 16:21:03 Result Notes None recorded. Problems Name Problem SNOMED Code Status Onset Date Resolution Date Notes Provider Name and Address Organization Details Recorded Time Chronic back pain 704100602 Active 2022 ROB [facility] L[facility]LC[facility]leCChelle 4 11:19:44 Lumbar radiculopathy 552395532 Active 2022 [facility] 4 11:19:49 Cervical radiculopathy 41291719 Active 2022 [facility] 4 11:19:37 Migraine 39219963 Active 2022 [facility] 12:16:57 Problem Notes None recorded. Procedures Surgical History Date Name Laterality Status Provider Name and Address Organization Details Recorded Time total hysterectomy with right salpingo-oophorecto my completed Ava Aguila MD [address] [place] [address], [phone], [facility] 01/03/2025 12:02:18 hysterectomy completed Ava Aguila MD [address] [place] [address], [phone], [facility] 01/03/2025 12:01:49 cholecystectomy completed [facility] 11/17/2022 12:16:12 Carpal tunnel surgery completed [facility] 11/17/2022 12:16:24 decompression of ulnar nerve completed [facility] 11/17/2022 12:16:33 section completed [facility] 11/17/2022 12:16:44 Imaging Results None recorded. Procedure Notes None recorded. Medical Equipment None Reported. Allergies Allergen ID Allergen Name Allergen Category Reaction Reaction Severity Criticality Documentation Date Start Date Code Code System Note Provider Name and Address Organization Details Recorded Time 11735 codeine medicatio n Not available Not available Not available 10/15/2022 2670 RxNorm [facility] 12:03:42 64572 Claritin- D medicatio n Not available Not available Not available 10/15/2022 [facility] 12:03:34 91391 Phenergan medicatio n Not available Not available Not available 10/02/2024 80874 8 RxNorm [facility]etsy brown [facility] 5 12:04:09 81283 levothyro xine sodium medicatio n Not available Not available Not available 02/27/20252014 57063 RxNorm face was numb Not Available [employer] - prod 5 10:06:52 21650 topiramat e medicatio n Not available Not available Not available 02/27/20252014 83558 RxNorm tingl ing Not Available [employer] - prod 5 10:06:52 67693 tramadol medicatio n hives Not available [employer] [facility] 02/27/20252014 88883 RxNorm Not Available [employer] - [employer] 5 10:06:52 02159 promethaz ine medicatio n Not available Not available Not available 02/27/20252009 8745 RxNorm Not Available [employer] Service - prod 5 10:07:06 Medications Name [...] two times daily 10/25 completed Recorded 04/21/19 23 11:33AM by Ava Aguila MD, Office Visit; Refill Quantity : 1; [...] 05/15 completed Recorded 04/21/19 23 11:15AM by Lynn Cosme LPN, Office Visit; Refill Quantity : 10; Tablet; Not Available Not Available Not Available Prilosec two times daily 10/25 completed Recorded 06/15/19 10:19AM by Tonja Espinoza LPN, Office Visit; Refill Quantity : 0; Not Available Not Available Not Available Hydrocodo ne W/Acetami nophen three times daily prn 10/25 completed hold until 30 days from previous fill date; Recorded 05/24/19 2:14PM by Ava Aguila MD, Refill Request; Refill Quantity : 0; Not Available Not Available Not Available ProAir HFA 90 mcg/actua tion aerosol inhaler every four hours, as needed 10/25 completed VO AT/MA; Recorded 01/15/20 10:58AM by Lynn Cosme LPN, Office Visit; Refill Quantity : 0; Not Available Not Available Not Available Zyrtec 10 mg capsule as needed 10/25 completed 0; Recorded 04/21/19 11:15AM by Lynn Cosme LPN, Office Visit; Not Available Not Available Not Available Vitals Date Recorded Body height Body mass index (BMI) Body weight Respiratory rate Body temperature Oxygen saturation Heart rate Systolic And Diastolic Provider Name and Address Organization Details Last Updated DateTime 162.56 cm 49.8 kg/m2 563993. 79 g 17 /min 97.2 [degF] 98 % 78 /min 170/100 mm[Hg] VANESSA CRISOSTOMO [facility] L[facility] 5 10:24:20 Date Recorded Body height Body mass index (BMI) Body weight Body temperature Heart rate Oxygen saturation Systolic And Diastolic Provider Name and Address Organization Details Last Updated DateTime 5 162.56 cm 48.9 kg/m2 452329. 83 g 97.5 [degF] 84 /min 98 % 138/84 mm[Hg] Radha Ethel [facility] L.L.CChelle 5 11:24:36 Date Recorded Body height Body mass index (BMI) Body weight Body temperature Heart rate Oxygen saturation Systolic And Diastolic Provider Name and Address Organization Details Last Updated DateTime 5 162.56 cm 49.4 kg/m2 964699. 6 g 98 [degF] 84 /min 97 % 122/80 mm[Hg] LYNN COSME [facility] L.L.CC[facility]le 5 11:42:55 Date Recorded Body height Body mass index (BMI) Body weight Oxygen saturation Heart rate Respiratory rate Body temperature Systolic And Diastolic Provider Name and Address Organization Details Last Updated DateTime 5 162.56 cm 50.1 kg/m2 510033. 97 g 97 % 80 /min 16 /min 98.1 [degF] 144/80 mm[Hg] Cotton Centerjeremiah Burk [facility] L.L.CChelle 5 14:43:43 Date Recorded Body height Body mass index (BMI) Body weight Oxygen saturation Heart rate Respiratory rate Body temperature Systolic And Diastolic Provider Name and Address Organization Details Last Updated DateTime 5 162.56 cm 50.3 kg/m2 112826. 56 g 97 % 88 /min 18 /min 98.2 [degF] 136/80 mm[Hg] Amber Burk [facility] L.L.CC[facility] 5 15:27:01 Social History Question Answer Notes LastModified by Organizat ion Details LastModified Time Tobacco Smoking Status Current Every Day Smoker LYNN COSME [facility] 11/17/2022 12:15:06 What Was The Date Of Your Most Recent Tobacco Screening? 03/11/2025 [email or web address] Information not available 03/11/2025 At What Age Did You Start Smoking Tobacco? 16 [email or web address] Information not available 11/17/2022 How Much Tobacco Do You Smoke? 1 PPD [email or web address] Information not available 11/17/2022 Sex: Unknown Functional Status Question Answer Note LastModified by Organization D etails LastModified Time Do you or have you ever used any other forms of tobacco or nicotine? No [email or web address] Information not available 11/17/2022 What is your level of alcohol consumption? None [email or web address] Information not available 11/17/2022 Do you or have you ever used any nicotine-free cigarettes, vape, or chewing tobacco? No [email or web address] Information not available 11/08/2024 Mental Status None recorded. Family History Relationship Description Onset Age of this Age Resolved Age Notes LastModified by Organization Details LastModified Time Paternal Grandmother Malignant neoplasm of colon [email or web address] Not available 11/17 12:13:18 Paternal Grandfather Carcinoma of prostate [email or web address] Not available 11/17 12:13:25 Paternal Grandfather Diabetes mellitus [email or web address] Not available 11/17 12:14:23 Unspecified Relation Crohn's disease cousin [email or web address] Not available 11/17 12:13:44 Mother Diabetes mellitus [email or web address] Not available 11/17 12:14:23 Maternal Uncle Diabetes mellitus [email or web address] Not available 11/17 12:14:23 Maternal Aunt Diabetes mellitus [email or web address] Not available 11/17 12:14:23 Medical History No medical history recorded. Gynecological HistoryNo gynecological history recorded. Obstetrics History GPAL:G 0 P 0 0 0 0 Immunizations Vaccine Type Date Status Note Provider Nam e and Address Organization Details Recorded Time Influenza, split virus, trivalent, preservative 5 completed Not Available [email or web address] 10/15/2022 02:43:31 Past Encounters Encounter ID Performer Location Encounter Start Date Encounter Closed Date Diagnosis/Indication Diagnosis SNOMED-CT Code Diagnosis ICD10 Code Diagnosis IMO Codes Diagnosis Note [id number] Ava Aguila MD [facility] ([facility]) [address] [place] [phone] 07/26/2022 14:36:30 07/26/2022 17:49:03 Cervical radiculopathy 54167568 M54.12 Lumbar radiculopathy 128 643594 M54.16 [id number] Ava Aguila MD [facility] ([facility]) [address] [place] [phone] 11/17/2022 11:50:12 11/17/2022 13:08:08 Lumbar radiculopathy 534808489 M54.16 Cervical radiculopathy 35731122 M54.12 Chronic back pain 593928 002 M54.17 [id number] Ava Aguila MD [facility] ([facility]) [address] [place] [phone] 03/10/2023 12:22:20 03/10/2023 15:08:05 Migraine 75422265 G43.909 Chronic back pain 679894 002 M54.17 [id number] Ava Aguila MD [facility]) [address] [place] [phone] 06/09/2023 11:49:44 06/09/2023 13:24:04 Gastroesophageal reflux disease 088224173 K21.00 Chronic back pain 689445 002 M54.17 will continue current care [id number] Ava Aguila MD [facility] ([facility]) [address] [place] [phone] 09/13/2023 11:13:33 09/13/2023 12:36:04 Chronic back pain 318698791 M54.17 will continue current care Migraine 06747624 G43.90 9 [id number] Ava Aguila MD [facility] ([facility]) [address] [place] [address] [phone] 12/27/2023 12:08:41 12/27/2023 13:52:02 Lumbar radiculopathy 065834362 M54.16 plan for mri at the first of the year. she is going to check on her deductible benefits etc. will likely benefit from lesi/bhavik trial and furthe rintervent ion as needed. she is able t work and funciton better with her [facility] are not a cure for her pain. Cervical radiculopathy 23526715 M54.12 [id number] Ava Aguila MD [facility] ([facility]) [address] [place] [phone] 02/01/2024 11:51:44 02/01/2024 14:53:59 Neck pain 96208847 M54.2 Went to the ER 01/30/24. [id number] Ava Aguila MD [facility] ([facility]) [address] [place] [phone] 04/05/2024 12:09:28 04/05/2024 13:29:57 Cervical radiculopathy 22387773 M54.12 Lumbar radiculopathy 128 542926 M54.16 plan for mri at the first of the year. she is going to check on her deductible benefits etc. will likely benefit from lesi/bhavik trial and further interventi on as needed.ins urance is still not active but will be next month. she will call when this is active and we will make the referral. she will follow HEP and f/u in 2 months to consider imaging.chayo myers is able t work and function better with her current meds though of course they are not a cure for her pain. Chronic back pain 395212 002 M54.17 will continue current care [id number] Ava Aguila MD [facility] ([facility]) [address] [place] [address] [phone] 07/03/2024 11:29:44 07/03/2024 14:21:21 Cervical radiculopathy 72850769 M54.12 see cervical xrays from 02/01/2024 Lumbar radiculopathy 128 M54.16 last visitplan for mri at the first of the year. she is going to check on her deductible benefits etc. will likely benefit from lesi/bhavik trial and further interventi on as needed.ins urance is still not active but will be next month. she will call when this is active and we will make the referral. she will follow HEP and f/u in 2 months to consider imaging.chayo myers is able t work and function better with her current meds though of course they are not a cure for her pain. update todaythe patienty has been following daily HEP since her last visit 3 months ago. she reports only mild improvemen t and continues to have cervical and lumbar radicular pain. Screening mammography 24 808964 Z12.31 [id number] Ava Aguila MD [facility] ([facility]) [address] [place] [address] [phone] 5 10/02/2024 11:09:12 10/07/2024 13:07:07 Physical examination 7771582 Z00.00 [id number] Ava Aguila MD [facility] ([facility]) [address] [place] [address] [phone] 5 10/02/2024 11:33:45 10/02/2024 15:34:28 Cervical radiculopathy 00146154 M54.12 see cervical xrays from 02/01/2024 Lumbar radiculopathy 128 987685 M54.16 last visitplan for mri at the first of the year. she is going to check on her deductible benefits etc. will likely benefit from lesi/bhavik trial and further interventi on as needed.ins pao is still not active but will be next month. she will call when this is active and we will make the referral. she will follow HEP and f/u in 2 months to consider imaging.chayo myers is able t work and function better with her current meds though of course they are not a cure for her pain. update todaythe patiently has been following daily HEP since her last visit 3 months ago. she reports only mild improvemen t and continues to have cervical and lumbar radicular pain. Screening mammography 24 139333 Z12.31 Chronic back pain 149552 002 M54.17 will continue current careshe is appropriat rogelio out of her medication [id number] Ava Aguila MD [facility] ([facility]) [address] [place] [address] [phone] 11/08/2024 10:11:25 11/11/2024 13:43:11 Essential hypertension 26163517 I10 62825 Frequent headache 144663 003 R51.9 [id number] Went to the ER 01/30/24. Headache a ssociated with sexual activity 575403126 G44.82 904397 [id number] Ava Aguila MD [facility] ([facility]) [address] [place] [address] [phone] 5 11/25/2024 11:13:18 11/27/2024 08:03:47 Chest pain 94840613 R07.9 80166516 risk factors include hypertensi on, obesity, cigarette smoking. given her lumbar radicular symptoms she would not be able to complete treadmill testing. as the patient is at high risk and experience d symptoms with exertion, she should have a stress test to assess for coronary blockage as the cause of her chest pain. Essential hypertension 97878339 I10 [id number] Ava Aguila MD [facility] ([facility]) [address] [place] [address] [phone] 01/03/2025 11:21:31 01/07/2025 10:43:23 Screening for malignant neoplasm of cervix 305649567 Z12.4 751212 she is aware of the risk of not doing a pap smear given hx of abnormal pap smear. will schedule for her at her request. Essential hypertension 31453962 I10 34776 [id number] PEGGY SHERIDAN APRN [facility] ([facility]) [address] [place] [address] [phone] 5 03/01/2025 14:32:37 03/01/2025 17:07:37 Sore throat 924754348 J02.9 94357 Viral disease 68540079 B 34.9 62923 [id number] ALEJANDRO MULLINS [facility] ([facility]) [address] [place] [address] [phone] 03/11/2025 15:05:54 03/11/2025 16:02:02 Strain of thoracic region 67852322 S29.012A [id number] Health Concerns Section Related Observation LastModified by Organization Detai ls LastModified Time None Recorded Concern Status LastModified by Organization Details LastModified Time None Recorded Advance Directives Directive None Recorded Payers Insurance Date Sequence Insurance Name Policy Number Policy Orellana Covered Member ID Orellana Member ID Guarantor Name 03/01/2025 1 STAFF BENEFITS MANAGEMENT ADMINISTRATORS - [facility] ([place]) Bere Quiros [id number] Bere Quiros 03/05/2025 2 *SELF PAY* Re darian Quiros 05/03/2024 1 *SELF PAY* Re darian Garcia Ishaan Notes Date Note Type Note Provider Name and Address Organization Details Recorded Time 11/08/2024 text/html ROS as noted in the HPI hospital f/u Patient was in the ER on 10/27/24 for a migraine. All tests were normal. She was given a dose of steroids and a migraine cocktail and discharged. She states she's been consistently having migraines. Her blood pressure had been running high as well. She believes the blood pressure is contributing to the headaches. throbbing right frontal headache she did have vomitingshe had the headache onset start with orgasm and this happened again. she was headache free until having another intercourse. headache has persisted for the last two days. the onset of the orgasmic headaches were not like a clap of thunder. it was more of a slow steadily builiding headache and became right frontal temporal throbbing. Ava Aguila MD [address] [place] [address], [phone], [facility] 11/08/2024 10:58:38 11/25/2024 text/html ROS as noted in the HPI Pt is here for a 2 week follow up. Note from last visit: hospital f/u: Patient was in the ER on 10/27/24 for a migraine. All tests were normal. She was given a dose of steroids and a migraine cocktail and discharged. She states she's been consistently having migraines. Her blood pressure had been running high as well. She believes the blood pressure is contributing to the headaches. throbbing right frontal headacheshe did have vomitingshe had the headache onset start with orgasm and this happened again. she was headache free until having another intercourse. headache has persisted for the last two days.the onset of the orgasmic headaches were not like a clap of thunder. it was more of a slow steadily building headache and became right frontal temporal throbbing. Pt states she has had some headaches, but they are not very bad. She has an MRI appt next . She states she went to the hospital again on 11/17 because she thought she was having a heart attack. All of her cardiac testing came back normal. see hospital er hpi for description of chest pain. this occurred as she was mildly exerting her self and came with significant onset of fatigue and shortness of breath. she had palpitations at the time. and felt like she had ran a mile when she was just walking from the car to the house. there are only 3 stairs. her heart was not beating fast it just felt like it was skipping a beat herre and there. her bp is improving. Ava Aguila MD [address] [place] [address], [phone], [facility] 11/25/2024 11:39:11 01/03/2025 text/html Back PainReporte d by PatientHPIFor [...] is crying all of the time, depressed. Ava Aguila MD [address] [place] [address], [phone], [facility] 01/03/2025 12:10:47 03/01/2025 text/html Sore ThroatRepor guillermo by Patient walk in patientpatient is here today for a sore throat that started a couple of days ago then today it got worse PEGGY SHERIDAN, STENO POOL SUPERVISOR [address] [place], [phone], [facility] 03/01/2025 16:35:41 03/11/2025 text/html Back PainReporte d by PatientHPIFor location, patient reportsthoracic bilateral. For quality, patient reportsstiffnessandten michelle. For severity, patient reportsunchanged. For duration, patient reports2 days. For timing, patient reportsacute. For associated symptoms, patient reportsno fever,no weakness,no numbness, andno tingling. For context, (after coughing/sneezing hard).ROS as noted in the HPI walk in patientpatient is here today for pain in her back from coughing that started yesterday SHIN ALDANA, COMPENSATION AND BENEFITS MANAGER [address] [place], [phone], [facility], [facility]. 03/11/2025 17:07:19 OBGyn Episode No OBEpisode recorded.
--- OUTSIDE RECORDS SUMMARY | 2025-03-14 14:41 | XMS_ITS | Continuity of Care Document ---
Author Organization ROB Karson Camacho [facility] Jorge Alberto Colbert, [facility] ([facility]) Address [address] [place] [address] Care Team Providers Care Mirror Machine Feeder Name Role Phone AVA PERKINS Primary Care Provider [phone] Assessment Encounter Date Assessment Date Assessment LastModified by Organization Details LastModified Time 03/11/2025 03/11/2025 Patient here today because she [...] has a follow-up appt soon with Dr. Perkins. Not available 03/11/2025 17:06:52 Plan of Treatment Reminders Order Date Submit Date Provider Last Modified By Organization Details Last Modified Time Details Appointments OFFICE VISIT GREGORIO 2025 10:00A M Ava Perkins MD Not available Not available Not available Lab None recorded. Referral None recorded. Procedures None recorded. Surgeries None recorded. Imaging None recorded. Medication Orders prednison e 20 mg tablet 2024 025 [facility], [address] [place] [address], [id number], 03/11/2025 16:27:12 tizanidin e 4 mg tablet 2024 025 [facility], [address] [place], [address], 03/11/2025 16:27:10 Patient TargetsNo targets recorded. Patient Instructions Encounter Date Encounter Id Patient Instructions Last Modified By Organization Details Last Modified Time 03/11/2025 [id number] Call or return for questions or concerns. Not available 03/11/2025 17:05:23 Reason for Referral None Reported. Results Created Date Observation Date Name Description Value Unit Range Abnormal Flag Note LastModifiedBy Organization Detail LastModifiedTime 03/01/20 25 03/01/2025 strep tococ cus group A Ag scree n Strep negati ve Not Available [facility] ([facility]) [address] [place], [address], 03/01/2025 14:34:44 Result Notes None recorded. Problems Name Problem SNOMED Code Status Onset Date Resolution Date Notes Provider Name and Address Organization Details Recorded Time Chronic back pain 623958277 Active 2022 LYNN brown [facility] 4 11:19:44 Lumbar radiculopathy 904416837 Active 2022 LYNN brown [facility] 4 11:19:49 Cervical radiculopathy 59688203 Active 2022 LYNN brown [facility] 4 11:19:37 Migraine 22977735 Active 2022 LYNN brown [facility] 3 12:16:57 Problem Notes None recorded. Procedures Surgical History Date Name Laterality Status Provider Name and Address Organization Details Recorded Time total hysterectomy with right salpingo-oophorecto my completed Ava Perkins MD [address] [place], [address], [facility] 01/03/2025 12:02:18 hysterectomy completed Ava Perkins MD [address] [place], [address], [facility], PeteLMerry 01/03/2025 12:01:49 cholecystectomy completed [facility]YNN COS[facility] 11/17/2022 12:16:12 Carpal tunnel surgery completed [facility], Jorge Alberto 11/17/2022 12:16:24 decompression of ulnar nerve completed [facility], [facility] 11/17/2022 12:16:33 section completed [facility], PeteLChelleCChelle 11/17/2022 12:16:44 Imaging Results None recorded. Procedure Notes None recorded. Medical Equipment None Reported. Allergies Allergen ID Allergen Name Allergen Category Reaction Reaction Severity Criticality Documentation Date Start Date Code Code System Note Provider Name and Address Organization Details Recorded Time 71718 codeine medicatio n Not available Not available Not available 10/15/2022 2670 [facility] 4 12:03:42 66812 Claritin- D medicatio n Not available Not available Not available 10/15/2022 [facility] 4 12:03:34 00908 Phenergan medicatio n Not available Not available Not available 10/02/2024 31619 8 RxNorm [facility] 5 12:04:09 64469 levothyro xine sodium medicatio n Not available Not available Not available 02/27/20252014 91159 RxNorm face was numb Not Available [employer] - External Data [employer] - prod 5 10:06:52 52792 topiramat e medicatio n Not available Not available Not available 02/27/20252014 97781 RxNorm tingl ing Not Available [facility] - External Data Service - prod 5 10:06:52 36603 tramadol medicatio n hives Not available [facility] 02/27/20252014 67968 RxNorm Not Available [facility] - External Data Service - prod 5 10:06:52 49176 promethaz ine medicatio n Not available Not available Not available 02/27/20252009 8745 RxNorm Not Available [place] - External Data Service - [facility] 5 10:07:06 Medications Name Sig Start Date [...] completed Recorded 04/21/19 23 11:33AM by Ava Perkins MD, Office Visit; Refill Quantity : [...] fill date; Recorded 05/24/19 2:14PM by Ava Perkins MD, Refill Request; Refill Quantity : [...] Organization Details Last Updated DateTime 162.56 cm 50.3 kg/m2 078913. 56 g 97 % 88 /min 18 /min 98.2 [degF] 136/80 mm[Hg] Amber Burk [facility] 15:27:01 Social History Question Answer Notes LastModified by Organizat ion Details LastModified Time Tobacco Smoking Status Current Every Day Smoker LYNN COSME [facility] 11/17/2022 12:15:06 What Was The Date Of Your Most Recent Tobacco Screening? 03/11/2025 [email or web address] Information not available 03/11/2025 At What Age Did You Start Smoking Tobacco? 16 Information not available 11/17/2022 How Much Tobacco Do You Smoke? 1 PPD [email or web address] Information not available 11/17/2022 Sex: Unknown Functional Status Question Answer Note LastModified by Organization D etails LastModified Time Do you or have you ever used any other forms of tobacco or nicotine? No [email or web address] Information not available 11/17/2022 What is your level of alcohol consumption? None [email or web address] Information not available 11/17/2022 Do you or have you ever used any nicotine-free cigarettes, vape, or chewing tobacco? No Information not available 11/08/2024 Mental Status None recorded. Family History Relationship Description Onset Age of this Age Resolved Age Notes LastModified by Organization Details LastModified Time Paternal Grandmother Malignant neoplasm of colon [email or web address] Not available 11/17 12:13:18 Paternal Grandfather Carcinoma of prostate [email or web address] Not available 11/17 12:13:25 Paternal Grandfather Diabetes mellitus [email or web address] Not available 11/17 12:14:23 Unspecified Relation Crohn's disease cousin [email or web address] Not available 11/17 12:13:44 Mother Diabetes mellitus [email or web address] Not available 11/17 12:14:23 Maternal Uncle Diabetes mellitus [email or web address] Not available 11/17 12:14:23 Maternal Aunt Diabetes mellitus [email or web address] Not available 11/17 12:14:23 Medical History No medical history recorded. Gynecological HistoryNo gynecological history recorded. Obstetrics History GPAL:G 0 P 0 0 0 0 Immunizations Vaccine Type Date Status Note Provider Nam e and Address Organization Details Recorded Time Influenza, split virus, trivalent, preservative 5 completed Not Available [facility] 10/15/2022 02:43:31 Past Encounters Encounter ID Performer Location Encounter Start Date Encounter Closed Date Diagnosis/Indication Diagnosis SNOMED-CT Code Diagnosis ICD10 Code Diagnosis IMO Codes Diagnosis Note [id number] PEGGY SHERIDAN APRN [facility] ([facility]) [address] [place] [address] 03/01/2025 14:32:37 03/01/2025 17:07:37 Sore throat 644674994 J02.9 64522 Viral disease 55106514 B 34.9 07289 [id number] ALEJANDRO MULLINS [facility] ([facility]) [address] [place] [address] 03/11/2025 15:05:54 03/11/2025 16:02:02 Strain of thoracic region 83189168 S29.012A [id number] Health Concerns Section Related Observation LastModified by Organization Detai ls LastModified Time None Recorded Concern Status LastModified by Organization Details LastModified Time None Recorded Payers Encounter Date Sequence Insurance Name Policy Number Policy Orellana Covered Member ID Orellana Member ID Guarantor Name 03/11/2025 1 STAFF BENEFITS MANAGEMENT ADMINISTRATORS - [facility] (O) Bere Quiros [id number] Bere Quiros Notes Date Note Type Note Provider Name and Address Organization Details Recorded Time 03/11/2025 text/html Back PainReporte d by PatientHPIFor location, patient reportsthoracic bilateral. For quality, patient reportsstiffnessandte nder. For severity, patient reportsunchanged. For duration, patient reports2 days. For timing, patient reportsacute. For associated symptoms, patient reportsno fever,no weakness,no numbness, andno tingling. For context, (after coughing/sneezing hard).ROS as noted in the HPI walk in patientpatient is here today for pain in her back from coughing that started yesterday SHIN ALDANA, TOP LIFT COMPRESSOR [address] [place], [address], [facility] 03/11/2025 17:07:19 OBGyn Episode No OBEpisode recorded.
--- OUTSIDE RECORDS SUMMARY | 2025-03-14 14:41 | XMS_ITS | Continuity of Care Document ---
Author Organization ROB [facility] Jorge Alberto Colbert, [facility] ([facility]) Address [address] [place] [address] Care Team Providers Care Metal Bonder Name Role Phone ARMANI PERKINS Primary Care Provider Assessment No assessment recorded. Plan of Treatment Reminders Order Date Submit Date Provider Last Modified By Organization Details Last Modified Time Details Appointments OFFICE VISIT GREGORIO 2025 10:00A M Armani Perkins MD Not available Not available Not available Lab streptoco ccus group A Ag screen 2024 025 [email or web address] [facility] ([facility]), [address] [place], [address], 03/04/2025 18:20:30 Referral None recorded. Procedures None recorded. Surgeries None recorded. Imaging None recorded. Medication Orders None recorded. Patient TargetsNo targets recorded. Patient Instructions Encounter Date Encounter Id Patient Instructions Last Modified By Organization Details Last Modified Time 03/01/2025 [id number] Discussed products for symptom relief. Follow up for worsening [email or web address] Not available 03/01/2025 15:39:27 Reason for Referral None Reported. Results Created Date Observation Date Name Description Value Unit Range Abnormal Flag Note LastModifiedBy Organization Detail LastModifiedTime 03/01/20 25 03/01/2025 strep tococ cus group A Ag scree n Strep negati ve Not Available [facility] ([facility]) [address] [place], [address], 03/01/2025 14:34:44 Result Notes None recorded. Problems Name Problem SNOMED Code Status Onset Date Resolution Date Notes Provider Name and Address Organization Details Recorded Time Chronic back pain 091346531 Active 2022 [facility] 11:19:44 Lumbar radiculopathy 051199447 Active 2022 ANOOP CARMELINA [facility] 4 11:19:49 Cervical radiculopathy 85569283 Active 2022 ANOOP CARMELINA [facility] 4 11:19:37 Migraine 41643647 Active 2022 ANOOP CARMELINA [facility] 3 12:16:57 Problem Notes None recorded. Procedures Surgical History Date Name Laterality Status Provider Name and Address Organization Details Recorded Time total hysterectomy with right salpingo-oophorecto my completed Armani Perkins MD [address] [place] [address], [address] [place] [address], [facility] 01/03/2025 12:02:18 hysterectomy completed Armani Perkins MD [address] [place] [address], [address] [place] [address], L.L.C[facility] 01/03/2025 12:01:49 cholecystectomy completed [facility] 11/17/2022 12:16:12 Carpal tunnel surgery completed [facility] 11/17/2022 12:16:24 decompression of ulnar nerve completed [facility] 11/17/2022 12:16:33 section completed [facility] 11/17/2022 12:16:44 Imaging Results None recorded. Procedure Notes None recorded. Medical Equipment None Reported. Allergies Allergen ID Allergen Name Allergen Category Reaction Reaction Severity Criticality Documentation Date Start Date Code Code System Note Provider Name and Address Organization Details Recorded Time 42600 codeine medicatio n Not available Not available Not available 10/15/2022 2670 RxNorm ANOOP CARMELINA brown [facility] 4 12:03:42 55197 Claritin- D medicatio n Not available Not available Not available 10/15/2022 ANOOP brown [facility] 4 12:03:34 20447 Phenergan medicatio n Not available Not available Not available 10/02/2024 62219 8 RxNorm Betsy Steinberg kevin [facility] 5 12:04:09 69256 levothyro xine sodium medicatio n Not available Not available Not available 02/27/20252014 07207 RxNorm face was numb Not Available [employer] - prod 5 10:06:52 07027 topiramat e medicatio n Not available Not available Not available 02/27/20252014 06233 RxNorm tingl ing Not Available [employer] - prod 5 10:06:52 52934 tramadol medicatio n hives Not available [facility] 02/27/20252014 61420 RxNorm Not Available [employer] - prod 5 10:06:52 60527 promethaz ine medicatio n Not available Not available Not available 02/27/20252009 8745 RxNorm Not Available [employer] - prod 5 10:07:06 Medications [...] 10/25 completed Recorded 04/21/19 23 11:33AM by Armani Perkins MD, Office Visit; [...] completed Recorded 04/21/19 23 11:15AM by Anoop Velazco LPN, Office Visit; Refill Quantity : 10; Tablet; Not Available Not Available Not Available Prilosec two times daily 10/25 completed Recorded 06/15/19 22 10:19AM by Tonja Espinoza LPN, Office Visit; Refill Quantity : 0; Not Available Not Available Not Available Hydrocodo ne W/Acetami nophen three times daily prn 10/25 completed hold until 30 days from previous fill date; Recorded 05/24/19 23 2:14PM by Armani Perkins MD, Refill Request; Refill Quantity : 0; Not Available Not Available Not Available ProAir HFA 90 mcg/actua tion aerosol inhaler every four hours, as needed 10/25 completed VO AT/MA; Recorded 01/15/20 22 10:58AM by Anoop Velazco LPN, Office Visit; Refill Quantity : 0; Not Available Not Available Not Available Zyrtec 10 mg capsule as needed 08/08 /2023 completed 0; Recorded 04/21/19 11:15AM by Anoop Velazco LPN, Office Visit; Not Available Not Available Not Available Vitals Date Recorded Body height Body mass index (BMI) Body weight Oxygen saturation Heart rate Respiratory rate Body temperature Systolic And Diastolic Provider Name and Address Organization Details Last Updated DateTime 162.56 cm 50.1 kg/m2 898933. 97 g 97 % 80 /min 16 /min 98.1 [degF] 144/80 mm[Hg] Amber Burk [facility] 14:43:43 Social History Question Answer Notes LastModified by Organizat ion Details LastModified Time Tobacco Smoking Status Current Every Day Smoker ANOOP brown [facility] 11/17/2022 12:15:06 What Was The Date Of Your Most Recent Tobacco Screening? 03/11/2025 [email or web address] Information not available 03/11/2025 At What Age Did You Start Smoking Tobacco? 16 [email or web address] Information not available 11/17/2022 How Much Tobacco Do You Smoke? 1 PPD Information not available 11/17/2022 Sex: Unknown Functional Status Question Answer Note LastModified by Organization D etails LastModified Time Do you or have you ever used any other forms of tobacco or nicotine? No [email or web address] Information not available 11/17/2022 What is your level of alcohol consumption? None [email or web address] Information not available 11/17/2022 Do you or have you ever used any nicotine-free cigarettes, vape, or chewing tobacco? No [email or web address] Information not available 11/08/2024 Mental Status None recorded. Family History Relationship Description Onset Age of this Age Resolved Age Notes LastModified by Organization Details LastModified Time Paternal Grandmother Malignant neoplasm of colon [email or web address] Not available 11/17 12:13:18 Paternal Grandfather Carcinoma of prostate [email or web address] Not available 11/17 12:13:25 Paternal Grandfather Diabetes mellitus [email or web address] Not available 11/17 12:14:23 Unspecified Relation Crohn's disease cousin [email or web address] Not available 11/17 12:13:44 Mother Diabetes mellitus [email or web address] Not available 11/17 12:14:23 Maternal Uncle Diabetes mellitus [email or web address] Not available 11/17 12:14:23 Maternal Aunt Diabetes mellitus [email or web address] Not available 11/17 12:14:23 Medical History No medical history recorded. Gynecological HistoryNo gynecological history recorded. Obstetrics History GPAL:G 0 P 0 0 0 0 Immunizations Vaccine Type Date Status Note Provider Nam e and Address Organization Details Recorded Time Influenza, split virus, trivalent, preservative 5 completed Not Available [facility] 10/15/2022 02:43:31 Past Encounters Encounter ID Performer Location Encounter Start Date Encounter Closed Date Diagnosis/Indication Diagnosis SNOMED-CT Code Diagnosis ICD10 Code Diagnosis IMO Codes Diagnosis Note [id number] PEGGY SHERIDAN APRN [facility] ([facility]) [address] [place] [address] 03/01/2025 14:32:37 03/01/2025 17:07:37 Sore throat 452988909 J02.9 77046 Viral disease 32732245 B 34.9 59861 Health Concerns Section Related Observation LastModified by Organization Detai ls LastModified Time None Recorded Concern Status LastModified by Organization Details LastModified Time None Recorded Payers Encounter Date Sequence Insurance Name Policy Number Policy Orellana Covered Member ID Orellana Member ID Guarantor Name 03/01/2025 1 [employer] (PPO) Bere Quiros [id number] Bere Quiros 03/01/2025 2 *SELF PAY* Re darian Quiros Notes Date Note Type Note Provider Name and Address Organization Details Recorded Time 03/01/2025 text/html Sore ThroatRepor guillermo by Patient walk in patientpatient is here today for a sore throat that started a couple of days ago then today it got worse PEGGY SHERIDAN APRN [address] [place], [address], [facility], L[facility]yes 03/01/2025 16:35:41 OBGyn Episode No OBEpisode recorded.
[2025-03-14 15:01] VITALS: BP 132/81; PULSE 91; RESP 16; TEMP 36.6; O2SAT 98; BMI 42.9
--- NOTE | 2025-03-14 15:04 | ED_ITS ---
HPI - Chest Pain General: Chief Complaint: Upper Respiratory Infection Stated Complaint: back to front chest pain Time Seen by Provider: 03/14/25 14:59 Related Data Home Medications ?Medication ?Instructions ?Recorded ?Confirmed hydrocodone 7.5 mg-acetaminophen 1 tab PO Q8H PRN Pain 04/26/19 07/24/24 325 mg tablet sumatriptan succinate 50 mg tablet 50 mg PO PRN PRN Mi graine Headache 07/24/24 07/24/24 Previous Rx's ?Medication ?Instructions ?Recorded tramadol 50 mg tablet 50 mg PO Q8H PRN pain #14 ta bs 07/24/24 Allergies Allergy/AdvReac Type Severity Reaction Status Date / Time codeine Allergy Unknown hives Verified 07/24/24 14:57 levothyroxine Allergy Unknown tingling Verified 07/24/24 14:57 feeling promethazine Allergy Unknown Unknown Verified 07/24/24 14:57 topiramate (From Topamax) Allergy Unknown chest pain Verified 07/24/24 14:57 [facility] ED PFSH: Medical History (Updated 11/24/24 @ 00:00 by ED Brown) Nicotine dependence, cigarettes, uncomplicated Generalized anxiety disorder Bipolar II disorder Mixed episodes Social History Smoking and tobacco/nicotine status: current every day tobacco/nicotine user cigarettes Packs smoked per day: 1 Course Vital Signs: Vital signs: Vital Signs Temperature 98 F 03/14/25 15:01 Pulse Rate 91 03/14/25 15:01 Respiratory Rate 16 03/14/25 15:01 Blood Pressure 132/81 03/14/25 15:01 Pulse Oximetry 98 03/14/25 15:01 Oxygen Delivery Me thod Room Air 03/14/25 15:01 Discharge Plan Discharge Condition: Stable Prescriptions: No Action hydrocodone-acetaminophen 7.5-325 mg tablet 1 tab PO Q8H PRN (Reason: Pain) sumatriptan succinate 50 mg tablet 50 mg PO PRN PRN (Reason: Migraine Headache) tramadol 50 mg tablet 50 mg PO Q8H PRN (Reason: pain) Qty: 14 0RF Referrals: Armani Aguila MD [Primary Care Provider, Family Practice] Print Language: Korean Coding Level of Care Code ED Press Supervisor for Conchis Bell
--- NOTE | 2025-03-14 15:21 | ED_ITS ---
HPI - Back Pain/Injury 2 General: Chief Complaint: Upper Respiratory Infection Stated Complaint: back to front chest pain Time Seen by Provider: 03/14/25 14:59 Source: patient Mode of arrival: ambulatory Limitations: no limitations History of Present Illness: Patient is a 45-year-old female presents to ED today with complaint of upper back pain. Patient states approximately 3 to 4 days ago she was coughing and immediately felt something pull to her left upper back. Patient states she has continued to have discomfort since. She states she was seen at [facility] and placed on Zanaflex and Prednisone. Patient does not feel like she is tolerating the Prednisone. She states she has been on Medrol Dosepaks before without any issues. She does take Hydrocodone chronically for lower back pain. She does not complain of any chest pain. No shortness of breath or difficulty breathing. Pain is worse with movement and coughing. No fevers. MD elicited complaint: back pain Onset (ago): day(s) Timing: constant Severity: moderate Similar Symptoms Previously: No Quality: sharp Location: thoracic spine and left upper back Radiation: none Exacerbating factors: movement, deep breaths and coughing/sneezing Relieving factors: none Context: other (while coughing) Associated symptoms: Reports no associated symptoms; Deny abdominal pain, chills, dysuria, fatigue, fever(s), hematuria, nausea, syncope or vomiting Work related injury: No Related Data Home Medications ?Medication ?Instructions ?Recorded ?Confirmed hydrocodone 7.5 mg-acetaminophen 1 tab PO Q8H PRN Pain 04/26/19 07/24/24 325 mg tablet sumatriptan succinate 50 mg tablet 50 mg PO PRN PRN Mi graine Headache 07/24/24 07/24/24 Previous Rx's ?Medication ?Instructions ?Recorded tramadol 50 mg tablet 50 mg PO Q8H PRN pain #14 ta bs 07/24/24 methylprednisolone 4 mg tablets in See Rx Instructions PO .COMPLEX 03/14/25 a dose pack (Medrol (Sanket)) #21 ea Allergies Allergy/AdvReac Type Severity Reaction Status Date / Time codeine Allergy Unknown hives Verified 07/24/24 14:57 levothyroxine Allergy Unknown tingling Verified 07/24/24 14:57 feeling promethazine Allergy Unknown Unknown Verified 07/24/24 14:57 topiramate (From Topamax) Allergy Unknown chest pain Verified 07/24/24 14:57 Review of Systems 2 Const: Denies: fever(s), chills, body aches, fatigue or malaise Card: Denies: chest pain, palpitations, irregular heart rhythm, edema, swelling of feet/ankles, lightheadedness, syncope, pre-syncope, dyspnea on exertion, orthopnea, leg pain with exertion or acrocyanosis Resp: Reports: pain on inspiration (L upper back); Denies: dyspnea, productive cough, non-productive cough or chest congestion GI: Denies: abdominal pain, nausea, vomiting or diarrhea : Denies: flank pain, difficulty voiding, dysuria or hematuria Musc: Reports: back pain; Denies: neck pain, extremity pain, extremity swelling, joint pain, joint swelling or joint redness Skin/Breast: Denies: rash Neuro: Denies: headache(s), numbness in extremities, weakness in extremities, sensory changes or dizziness PFSH ED 2 PFSH: Medical History Nicotine dependence, cigarettes, uncomplicated Generalized anxiety disorder Bipolar II disorder Mixed episodes Social History Smoking and tobacco/nicotine status: current every day tobacco/nicotine user cigarettes Packs smoked per day: 1 Physical Exam 2 Const: COMMON NORMALS: no acute distress, patient oriented x3, no limitations, alert and well nourished GENERAL APPEARANCE: cooperative NUTRITIONAL APPEARANCE: obese (BMI 42.9) ORIENTATION/CONSCIOUSNESS: Yes awake, Yes oriented to person, Yes oriented to place and Yes oriented to time Neck/C-Spine: COMMON NORMALS: full ROM GENERAL: Yes normal visual inspection CERVICAL SPINE: Yes cervical ROM normal, No Cervical spine tenderness, No Paracervical muscle tenderness and No Trapezius muscle tenderness Chest: COMMONS NORMALS: normal inspection of the chest and normal palpation of entire chest wall Resp: COMMON NORMALS: normal respiratory effort and clear to auscultation bilaterally AUSCULTATION: clear to auscultation bilaterally Cardio: COMMON NORMALS: regular rate and regular rhythm RATE: regular rate RHYTHM: regular rhythm : COMMON NORMALS: Yes no CVA tenderness BLADDER/KIDNEY EXAM: Yes no CVA tenderness Back/Pelvis: COMMON NORMALS: no CVA tenderness, thoracic and lumbar spine normal to inspection, thoraco-lumbar ROM normal and straight leg raise negative bilaterally THORACIC SPINE/UPPER BACK: Yes paraspinal muscle tenderness BACK IMAGE (FEMALE): 1. TTP-palpation directly reproduces pain; pain also worsened with ROM of L shoulder Extremity: COMMON NORMALS: normal to inspection, full ROM and capillary refill normal GENERAL: Yes normal exam except as noted Neuro: BRITNEY COMA SCALE: document GCS findings Pioneer coma scale eye opening: Spontaneous Pioneer coma scale verbal response: Orientated Britney coma scale motor response: Obey commands Pioneer coma scale total score: 15 COMMON NORMALS: patient oriented x3, moves all extremities, no focal motor deficits, no sensory deficits noted and gait normal SENSORIUM/ORIENTATION: Yes alert, Yes oriented to person, Yes oriented to place and Yes oriented to time Skin: COMMON NORMALS: no rashes or lesions noted GENERAL SKIN EXAM: no rashes or lesions noted Course 2 Vital Signs: Vital signs: Vital Signs Temperature 98 F 03/14/25 15:01 Pulse Rate 91 03/14/25 15:01 Respiratory Rate 16 03/14/25 15:01 Blood Pressure 132/81 03/14/25 15:01 Pulse Oximetry 98 03/14/25 15:01 Oxygen Delivery Me thod Room Air 03/14/25 15:01 MDM - Back Pain/Injury Medical Decision Making Patient is a 45-year-old female here for left upper back pain that started few days ago after coughing. Pain is easily reproducible on physical examination. EKG performed in triage-not sure why-but I think she had mentioned maybe her back pain radiating into her chest. This was unremarkable. Patient no complaints of chest pain to me. I do not suspect any life-threatening etiology at this time. CXR obtained and unremarkable. Will have her continue steroids and anti-inflammatories. Discussed other conservative therapies including topical medications, ice, heat, ice massage, etc. she can follow-up with primary care in 1 to 2 weeks if symptoms are not improving. Return ED precautions discussed. Differential Diagnosis Likely strain of lumbar region and thoracic back pain Medical Records I reviewed the patient's medical records. XR interpretation done by ED provider, pending radiology final review Discharge Plan Discharge Patient Disposition: Home Clinical Impression: Musculoskeletal back pain Condition: Stable Prescriptions: New methylprednisolone [Medrol (Sanket)] 4 mg tablets,dose pack See Rx Instructions .ROUTE .COMPLEX Qty: 21 0RF Rx Instructions: orally per package directions No Action hydrocodone-acetaminophen 7.5-325 mg tablet 1 tab PO Q8H PRN (Reason: Pain) sumatriptan succinate 50 mg tablet 50 mg PO PRN PRN (Reason: Migraine Headache) tramadol 50 mg tablet 50 mg PO Q8H PRN (Reason: pain) Qty: 14 0RF Discharge Orders: Discharge ED (Routine); Ordered 03/14/25 Ordered By: Marium Solitario Referrals: Armani Aguila MD [Primary Care Provider, Family Practice] Patient Instructions: Patient Portal & Mendez Instructions Activity Restrictions/Additional Instructions: Your chest x-ray here was unremarkable. EKG was normal. We will switch your prednisone to the Medrol Dosepak. You can continue the Zanaflex. Recommend follow-up with primary care in 1 to 2 weeks if symptoms do not improve. Print Language: Eritrean Coding Level of Care Code ED Subwarehouse Supervisor for Conchis Bell
[2025-03-14 15:57] VITALS: BP 142/91; PULSE 75; O2SAT 98
== END 2025-03-14 15:57 | disposition home or self-care (01) ==
PROVIDERS: Emergency Provider Physician Assistant; PCP Family Medicine
DX: M54.89 Other dorsalgia (principal); F17.210 Nicotine dependence, cigarettes, uncomplicated
CPT/HCPCS: 71045; 93005; 96372; 99284; J1100; J1885